=== PATIENT | male | born 1935 | race Caucasian/White ===

== ENCOUNTER → 2019-05-28 | Outpatient (CLI) | payer MEDICARE, SELFPAY | PROVIDERS: Family Provider Family Medicine; Visit Provider Internal Medicine Medical Oncology | DX: D46.1 Refractory anemia with ring sideroblasts (principal) | CPT/HCPCS: 36430; 85025; 86850; 86900; 86901; 86920; 96374; J1940; J7050; P9016 ×2 ==

== ENCOUNTER 2019-06-11 17:10 | Outpatient (CLI) | payer MEDICARE, SELFPAY ==
[2019-06-11 19:18] LABS: Albumin Level 3.8 g/dL (3.5-5.2)
[2019-06-11 19:29] LABS: Prealbumin 18.3 mg/dL (20-40)
== END 2019-06-11 17:11 | disposition home or self-care (01) ==
LOC: LAB 17:14
PROVIDERS: Family Provider Family Medicine; PCP Family Medicine; Visit Provider Surgery
DX: L97.911 Non-pressure chronic ulcer of unspecified part of right lower leg limited to breakdown of skin (principal)
CPT/HCPCS: 82040; 84134

== ENCOUNTER 2019-07-10 08:55 | Outpatient (CLI) | payer MEDICARE, SELFPAY ==
[2019-07-10] VITALS (11 sets, daily range): BP systolic 115–142; BP diastolic 48–75; PULSE 79–87; RESP 17–18; TEMP 36.4–36.8; O2SAT 92–100
[2019-07-10 09:24] LABS: Basophils % 1.4 %; Eosinophils % 1.4 %; Hematocrit 26.5 % (42.0-52.0); Hemoglobin 8.1 g/dL (11.7-16.6); Lymphocytes # 0.8 10^3/uL (0.8-4.8); Lymphocytes % 27.5 %; Mean Corpuscular HGB Conc 30.6 g/dL (30.0-36.0); Mean Corpuscular Hemoglobin 37.5 pg (28.0-34.0); Mean Corpuscular Volume 122.7 fL (80-94); Mean Platelet Volume 10.6 fL (7.4-10.4); Monocytes # 0.8 10^3/uL (0.2-0.9); Monocytes % 28.6 %; Neutrophils # 1.1 10^3/uL (1.8-7.7); Neutrophils % 40.4 %; Nucleated Red Blood Cells % 0 %; Platelet Count 324 10^3/cmm (130-400); Red Blood Count 2.16 10^6/uL (4.1-5.3); Red Cell Distribution Width 21.6 % (12.1-15.1); White Blood Count 2.8 10^3/uL (4.0-10.0)
[2019-07-10 09:42] LABS: Ferritin 591 ng/mL (30-400); Iron 145 ug/dL (59-158); Lactate Dehydrogenase 338 U/L (135-225); Percent Saturation 72.5 % (20-50); Total Iron Binding Capacity 200 mcg/dl; Unsaturated Iron Binding 55 ug/dL (112-347)
[2019-07-10] MEDS: diphenhydrAMINE 25 mg Capsule PO (13:00)
[2019-07-10] MEDS: acetaminophen 325 mg Tablet 650 MG PO (13:00)
[2019-07-10] MEDS: sodium chloride 0.9% 250 ML 999 ML IV (13:03)
[2019-07-10] MEDS: FUROsemide 10 mg/mL SDV 2mL 20 MG IV (14:52)
--- NOTE | 2019-07-10 20:23 | ONC FU_ITS ---
Dr. Grayson Patient Follow-Up Note Patient: Mike Sylvester Unit #: [id number]: 1935 Dicatated By: Craig Grayson M.D.Date of Visit:Jul 10, 2019 Onc Med Follow-up/Prog Note Chief Complaint: Myelodysplastic syndrome. 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 He has had long-standing anemia, refractory to erythropoietin stimulating agents. He was first seen here by Dr. Smith on 06/24/2011. 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 He had abundant proliferation of granulocytes and megakaryocytes with mild dyspoiesis. Flow cytometry, cytogenetics, FISH panel for MDS and reticulin stains were unrevealing. Flow cytometry for PNH was negative, and JAK2 and BCR/abl studies were unrevealing. He was diagnosed with systemic lupus erythematosus, and established care with rheumatology. His further workup revealed positive SLE serology, with positive antibodies for SSA, SSB, CONFERENCE SPECIALIST, and scleroderma. Complement levels C3, C4 were reduced. He responded to high dose prednisone, eventually tapered off in September of 2011 with hemoglobin recovered to 10-11 g/dL and transfusion independent. He was doing well until December of 2011, when he presented with recurrent anemia with hemoglobin 8.3 g/dL, and symptomatic CHF. At that time prednisone was restarted and tapered but also cyclosporin 100 mg by mouth 3 times a day was added. His anemia remained stable between 9-10 g/dL, and he was tolerating cyclosporin well. Since May 2012 he was under the care of Dr. Delgado in [place], as it was closer to home. He was receiving transfusion support about 3-4 times per year, Epogen injections monthly. He continued on cyclosporin at 100 mg three times a day. 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 Since July of 2013 had been receiving Epogen weekly, as he had more refractory anemia. In interim he required an AICD placement for his ischemic cardiomyopathy in September of 2013. In October 2013, he developed flash pulmonary edema associated with hemoglobin bruce around 7 g/dL. He was seen here again on 11/13/2013. While he remained on therapy with cyclosporin, his repeat bone marrow biopsy on 11/14/2013 was essentially unchanged. He had total of 80% cellularity with some limited dyspoiesis in megakaryocytes. He continued to have only 6% of red cells precursors. Cytogenetics failed to culture metaphase cells. FISH panel for MDS was negative. ESR 52, LDH 385 without hemolysis, and erythropoietin level 251. Thus, it had become clear that he was not responding to cyclosporine therapy. Cyclosporine and Epo injections were stopped to get a better sense of a new baseline. Prednisone 80 mg was restarted on 12/05/2013. Two weeks after steroid therapy his hemoglobin increased from 8.2 g/dL to 9.7 g/dL, indicating positive response, providing further evidence that an underlying immune process was affecting the RBC precursors. CT of the chest on 12/12/2013 showed no evidence of thymoma. He had moderate emphysema, indeterminate mediastinal lymph nodes up to 11 mm, stable left adrenal mass and a mild splenic enlargement. Given evidence of lupus like autoimmune condition, the alternative immunosuppressive therapy with rituximab began on 12/26/2013, as per discussion with Dr. Contreras, at [facility]. He received 4 weekly doses, completed on 01/16/14, and steroids were titrated down faster. Aranesp was restarted. His hemoglobin recovered and remained stable at above 10 g/dL, indicating positive response to rituximab treatment. He had a follow up with Dr Contreras at [facility], clonal evolution by next generation sequencing showed a new clonal mutation, confirming diagnosis of MDS. Second trial of rituximab began on 08/06/14- 08/27/14. Aranesp decreased down to every 2 weeks. The patient received cycle 3 of rituximab therapy from 01/28/15 to 02/18/15. He was doing well without complications. He continued on Aranesp therapy, and his hemoglobin remained stable. On 02/27/15 he was admitted with unstable angina. He required blood transfusion, but was refractory to it. Percutaneous coronary intervention was attempted, but reportedly was not successful. His hemoglobin declined to 8.4 g/dL in July 2015, recovered to 10 g/dL with the trial of steroids once again. His hemoglobin stabilized at 9.8 g/dL, and he completed steroid taper. His therapy was changed to Aranesp every 3 weeks because of the issues with transportation. He had a non-ST elevated myocardial infarction in November 2015, for which he underwent cardiac catheterization on 12/10/2015. He was found to have severe three-vessel disease with occluded grafts. There also was evidence of severe ischemic cardiomyopathy. Apparently it was felt that his disease was not amenable to any intervention. However, in the setting of symptomatic underlying coronary artery disease, he was deemed to be inappropriate for treatment with an erythropoietin stimulating agent, and the Aranesp was discontinued. He continued low-dose prednisone. He underwent repeat bone marrow aspiration/biopsy on 06/29/2016. Cellularity was increased, estimated at 75-80%. There was mild megakaryocyte dyspoiesis. There was no significant dyserythropoiesis noted. Blasts were reported at 0%. There was no storage iron identified. The FISH panel for MDS was unrevealing and the standard chromosome analysis was normal. The findings were nondiagnostic other than the apparent iron deficiency. He was given parenteral iron replacement with a single infusion of Injectafer on 08/17/2016. There was no observable response, as his follow-up CBC on 09/09/2016 showed his hemoglobin down to 7.7 g compared to 8.7 g on 08/04/2016. At that point he did receive a transfusion of 1 unit of packed red blood cells. As of December 2016 his hemoglobin level had decreased to under 9 g, and he also developed mild leukopenia. He underwent repeat bone marrow aspiration/biopsy on 03/05/2017. The marrow was hypercellular at 90-95%. There was evidence of megakaryocyte disc dyspoiesis. Erythroid precursors were noted to be decreased, and there was limited dyserythropoiesis. Iron stores were 1+. Ring sideroblasts were present, accounting for 20% of nucleated red cells. Blasts were estimated at 3%. The FISH panel for MDS was unrevealing, and the standard chromosome analysis was normal. Overall, the findings were felt to be consistent with myelodysplastic syndrome (MDS with ring sideroblasts). During subsequent follow-up on low-dose prednisone he continued to have moderately severe anemia, but above transfusion threshold. However, on 05/31/2017 his hemoglobin had dropped to 7.3 g. He was significantly more fatigued and short of breath. He was given a transfusion of 2 U of packed red blood cells on 06/01/2017. He then began a trial of therapy with Revlimid 10 mg daily. During subsequent follow-up he continued to have moderately severe anemia. He required transfusion again on 07/21/2017. He then developed severe neutropenia, ANC 600. As of 08/23/2017 the Revlimid was put on hold. His subsequent blood counts continued to show anemia and neutropenia. He required further transfusions on 08/31/2017 and on 09/27/2017. During this time, he underwent placement of a Watchman SILVIA occlusion device. He had no complications with the procedure. He initially continued anticoagulation with apixaban 2.5 mg twice a day together with clopidogrel 75 mg daily, but it was later changed to just aspirin. He also has continued immunosuppressive therapy with hydroxychloroquine 200 mg twice a day and prednisone 5 mg daily. He remained transfusion dependent. As of February 2018 his ferritin level had increased to 1153 ng/mL, and he then started treatment with deferasirox. It was stopped in September 2018 after his ferritin level had dropped to less than 500 ng/mL. His medical illnesses include hypertension, dyslipidemia, coronary artery disease, congestive heart failure, hypothyroidism, and systemic lupus. He has a history of prior stroke. He has undergone coronary artery bypass surgery. He has had a previous cholecystectomy, and he has undergone removal of colonic polyps. He underwent right inguinal hernia repair at [facility] in March 2016. He has history of smoking 1-1/2 packs of cigarettes daily for 60 years, but he quit smoking approximately 2006. INTERIM HISTORY: On 11/27/2018 he was admitted to the hospital after falling at home and sustaining a left hip fracture. He apparently developed an infection postoperatively, but eventually was transferred to rehabilitation on 12/20/2018 and he was able to return home on 01/05/2019. During that time he was taken off hydroxychloroquine. He continued on low-dose prednisone at 5 mg daily. He has remained transfusion dependent. He is seen for a scheduled visit. He says his energy is not very good. He continues to have shortness of breath with any activity, and he has very limited activity tolerance. He is still able to do some light work. He does get benefit with transfusions. ECOG score is 1. His appetite is good. He recently has gained weight. He has no fever or night sweats. He has been going to wound care for ulcerations on both legs. He does not have much cough. He has not been having chest pain. His bowel function lately has been better. He continues to have difficulty voiding. He has not been back to see Dr. Wheeler yet. He has no significant joint or bone pain. He does not complain of headache or dizziness. He has no focal neurologic symptoms. Medications: Carvedilol 1 (6.25 mg) Tablet Oral b.i.d., Colace 1 Tablet Oral b.i.d., Combigan 1 drop(s) (of 0.2-0.5 %) Solution Ophthalmic daily, Finasteride 1 (5 mg) Tablet Oral daily, Folic Acid 1 Tablet (of 0.8 mg) Oral daily, Furosemide 1 (40 mg) Tablet Oral daily PRN, Magnesium 1 (400 mg) Tablet Oral daily, Nitroglycerin 1 (0.4 mg) Tablet, sublingual Sublingual PRN, Ocuvite 1 Tablet Oral daily, Plavix 1 (75 mg) Tablet Oral daily, Potassium Chloride ER 1 (10 meq) Capsule, controlled release Oral daily, PredniSONE 1 Tablet (of 5 mg) Oral daily, Simvastatin 1 (20 mg) Tablet Oral daily, Vitamin B12 1 Tablet (of 5000 mcg) Oral daily Allergies: No Known Allergies. Review of Systems: Constitutional - His energy is not very good. He still does light work. Appetite is good. He recently has gained weight. No fever, chills, hot flashes, or night sweats. ECOG score is 1, ENMT - No sinus congestion/drainage. No mouth sores. No sore throat or difficulty swallowing, Hematologic/Lymphatic - He bruises easily, Respiratory - He has shortness of breath with any activity. He does not have much cough. No pleuritic pain or hemoptysis, Cardiovascular - No angina pain. No palpitations, Gastrointestinal - No nausea or vomiting. No heartburn or acid reflux. His bowel function is better. No blood in the stool or black stools, Genitourinary (M) - He has difficulty voiding and his urine flow is getting worse. No dysuria or hematuria. No urgency or incontinence, Musculoskeletal - No significant joint or bone pain, Integumentary - He has been going to wound care for ulcerations on both legs, Neurologic - No headache or dizziness. No numbness/paresthesias or other focal neurologic symptoms, Psychiatric - No anxiety or depression. He does not sleep for more than 2-3 hours without having to get up. Vital Signs: Performed on Jul 10, 2019 09:40 Height - 71.00 in Weight - 193.0 lbs (HIGH) BSA - 2.08 sq.m BMI - 26.92 Temperature - 97.4 F (LOW) Pulse - 80 /min Respiration - 24 /min BP - 121/58 mm(hg) O2 Sat - 89 % (LOW) Pain - 0 Physical Examination: Constitutional - He appears somewhat weak generally. He appears short of breath with effort, Eyes - Sclerae nonicteric. Conjunctivae clear, ENMT - No lesions noted in the oral cavity, Hematologic/Lymphatic - No cervical, clavicular, or axillary adenopathy, Respiratory - Lungs sound clear at this time, Cardiovascular - Heart rhythm is regular. There is a II/ systolic murmur. There is no gallop or rub noted, Abdomen - Mildly distended but soft. Liver and spleen are not enlarged. There is no abdominal mass or ascites noted and there is no inguinal adenopathy, Extremities - Mild to moderately severe lower extemity edema. Both legs are wrapped. He has extensive purpura, Neurologic - No focal neurologic deficits noted. Lab/Imaging: Test performed on Jul 10, 2019 09:08 Ferritin 591 ng/mL Iron 145 ug/dL LDH (Total) 338 U/L UIBC 55 ug/dL WBC 2.8 10 3/uL RBC 2.16 10 6/uL HGB 8.1 g/dL HCT 26.5 % MCV 122.7 fL MCH 37.5 pg MCHC 30.6 g/dL RDW 21.6 % Platelet Count 324 10 3/cmm MPV 10.6 fL Neutrophils 1.1 10 3/uL Lymphocytes 0.8 10 3/uL Monocytes 0.8 10 3/uL Eosinophils 0.0 10 3/uL Basophils 0.0 10 3/uL Neutrophil % 40.4 % Lymphocyte % 27.5 % Monocyte % 28.6 % Eosinophil % 1.4 % Basophils % 1.4 % Test performed on Jul 01, 2019 17:18 TSH 14.63 uU/mL Vitamin B12 1034 pg/mL Cholesterol, Total 95 mg/dL Glucose 107 mg/dL BUN 28 mg/dL HDL Cholesterol 44 mg/dL Creatinine 1.3 mg/dL LDL Cholesterol 28 mg/dL VLDL Cholesterol 23.2 mg/dL BUN/Creatinine Ratio 22 Absolute Value Triglycerides 116 mg/dL Sodium 142 mmol/L Potassium 4.1 mmol/L Chloride 99 mmol/L CO2 38 mmol/L Calcium 8.7 mg/dL Impression: 1. 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 2. He has had evidence of underlying autoimmune disease, including systemic lupus erythematosus. 3. His anemia has shown response to immunosuppressive therapy, which has included steroid therapy and rituximab. He appeared, though, to have failed treatment with cyclosporine. 4. He also had benefit with an erythropoietin stimulating agent. 5. He was hospitalized with non-ST elevation myocardial infarction in November 2015. At that point it was felt that he was not eligible for further treatment with an erythropoietin stimulating agent. His other medical illnesses include: 6. Hypertension. 7. Dyslipidemia. 8. Coronary artery disease. 9. He has history of atrial fibrillation and congestive heart failure. 10. Hypothyroidism. 11. History of prior stroke. He had initially been stable clinically following the myocardial infarction in November 2015, but with some decline in his hemoglobin/hematocrit levels. His repeat bone marrow aspiration/biopsy on 06/29/2016 showed absent storage iron consistent with iron deficiency. The marrow was hypercellular, but there were no other diagnostic findings. I was uncertain of the clinical significance of the absent storage iron, as he had normal transferrin saturation and elevated ferritin. He was given a single infusion of Injectafer on 08/17/2016. There was no observable response. He required transfusion again in August 2016. As of December 2016 his hemoglobin had declined under 9 g, and he also developed mild leukopenia. His repeat bone marrow aspiration/biopsy on 03/05/2017 was consistent with myelodysplastic syndrome (MDS with ring sideroblasts). His IPSS-R score calculated to 3.0, low risk. During subsequent followup his hemoglobin level remained stable in the range of 8-9 g, above transfusion threshold. As of 05/31/2017 his hemoglobin had dropped to 7.3 g. He was transfused 2 U of packed red blood cells. He then started a trial of therapy with Revlimid 10 mg daily. He required another transfusion of PRBC within 1 month after starting the Revlimid. During subsequent follow-up, he continued to have moderately severe anemia. He then developed severe neutropenia, and as of his follow-up visit on 08/23/2017 the Revlimid was put on hold. During subsequent follow-up he remained transfusion dependent, but he did have recovery of his neutrophil count. As of February 2018 he began chelation therapy with deferasirox, as his ferritin had become significantly elevated. It was stopped in September 2018 with the ferritin level had dropped below 500 ng/mL. On 11/27/2018 he was admitted to the hospital after falling at home and sustaining left hip fracture. He had a gradual recovery following that surgery, though he has since then had worsened bladder function with difficulty voiding. He has chronic edema and he has been undergoing treatment at wound care clinic for venous stasis ulcers on both legs. He has very limited activity tolerance, and he has remained transfusion dependent. Plan: He will be transfused PRBC today. He will continue prednisone 5 mg daily. He prefers to have his blood count rechecked on an as-needed basis, and he will be given further transfusion as needed. I will see him again in 3 months. In the meantime, I am going to look into the possibility of a trial of therapy with luspatercept, which recently was reported to have benefit in the treatment of myelodysplastic syndrome with ring sideroblasts with associated transfusion dependence. Signed By: Craig Grayson M.D. <<Signature on File>>
== END 2019-07-10 08:56 | disposition home or self-care (01) ==
LOC: ONCMED 09:02
PROVIDERS: Family Provider Family Medicine; PCP Family Medicine; Visit Provider Internal Medicine Medical Oncology
DX: D46.1 Refractory anemia with ring sideroblasts (principal); J43.9 Emphysema, unspecified; I25.5 Ischemic cardiomyopathy; I25.10 Atherosclerotic heart disease of native coronary artery without angina pectoris; E78.5 Hyperlipidemia, unspecified; I11.0 Hypertensive heart disease with heart failure; I50.9 Heart failure, unspecified; E03.9 Hypothyroidism, unspecified; M32.9 Systemic lupus erythematosus, unspecified; I25.2 Old myocardial infarction; Z91.81 History of falling; Z79.899 Other long term (current) drug therapy; Z79.02 Long term (current) use of antithrombotics/antiplatelets; Z79.52 Long term (current) use of systemic steroids; Z92.25 Personal history of immunosuppression therapy; Z95.810 Presence of automatic (implantable) cardiac defibrillator; Z86.73 Personal history of transient ischemic attack (TIA), and cerebral infarction without residual deficits; Z95.1 Presence of aortocoronary bypass graft
CPT/HCPCS: 36430; 82728; 83540; 83550; 83615; 85025; 86850; 86900; 99214; J1940; J7050; P9040

== ENCOUNTER → 2019-10-22 10:27 | Outpatient (BNVA) | payer MEDICARE, SELFPAY | PROVIDERS: Family Provider Family Medicine; PCP Family Medicine; Visit Provider Internal Medicine Medical Oncology | DX: D64.9 Anemia, unspecified (principal) | CPT/HCPCS: 85025 ==

== ENCOUNTER 2019-10-23 07:53 | Outpatient (CLI) | payer MEDICARE, SELFPAY ==
[2019-10-23] MEDS: acetaminophen 325 mg Tablet 650 MG PO (09:00)
[2019-10-23] MEDS: sodium chloride 0.9% 250 ML 999 ML IV (09:00)
[2019-10-23] MEDS: FUROsemide 10 mg/mL SDV 2mL 20 MG IV (17:09)
[2019-10-23] MEDS: diphenhydrAMINE 25 mg Capsule PO (17:09)
== END 2019-10-23 07:54 | disposition home or self-care (01) ==
LOC: ONCMED 07:58
PROVIDERS: PCP Family Medicine; Visit Provider Internal Medicine Medical Oncology
DX: D50.8 Other iron deficiency anemias (principal); D46.1 Refractory anemia with ring sideroblasts
CPT/HCPCS: 86850; 86900; 86920; J1940; J7050; P9040

== ENCOUNTER 2019-11-18 08:48 | Outpatient (CLI) | payer MEDICARE, SELFPAY ==
[2019-11-18] VITALS (9 sets, daily range): BP systolic 103–128; BP diastolic 47–63; PULSE 75–82; RESP 17–18; TEMP 36.7–36.9; O2SAT 90–98
[2019-11-18 09:28] LABS: Hematocrit 26.9 % (42.0-52.0); Hemoglobin 8.1 g/dL (11.7-16.6); Lymphocytes # 0.8 10^3/uL (0.8-4.8); Lymphocytes % 19.1 %; Mean Corpuscular HGB Conc 30.1 g/dL (30.0-36.0); Mean Corpuscular Volume 122.8 fL (80-94); Mean Platelet Volume 10.4 fL (7.4-10.4); Monocytes # 1.1 10^3/uL (0.2-0.9); Monocytes % 26.8 %; Neutrophils % 50.8 %; Nucleated Red Blood Cells % 0 %; Platelet Count 357 10^3/cmm (130-400); Red Blood Count 2.19 10^6/uL (4.1-5.3); Red Cell Distribution Width 23.1 % (12.1-15.1); White Blood Count 3.9 10^3/uL (4.0-10.0)
[2019-11-18] MEDS: acetaminophen 325 mg Tablet 650 MG PO (11:40)
[2019-11-18] MEDS: sodium chloride 0.9% 250 ML 999 ML IV (12:15)
[2019-11-18] MEDS: diphenhydrAMINE 25 mg Capsule PO (12:15)
--- NOTE | 2019-11-19 07:56 | ONC FU_ITS ---
Dr. Grayson Patient Follow-Up Note Patient: Mike Sylvester Unit #: [id number]: [id number] Dicatated By: Craig Grayson M.D.Date of Visit:Nov 18, 2019 Onc Med Follow-up/Prog Note Chief Complaint: Myelodysplastic syndrome. 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 He has had long-standing anemia, refractory to erythropoietin stimulating agents. He was first seen here by Dr. Smith on 06/24/2011. 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 He had abundant proliferation of granulocytes and megakaryocytes with mild dyspoiesis. Flow cytometry, cytogenetics, FISH panel for MDS and reticulin stains were unrevealing. Flow cytometry for PNH was negative, and JAK2 and BCR/abl studies were unrevealing. He was diagnosed with systemic lupus erythematosus, and established care with rheumatology. His further workup revealed positive SLE serology, with positive antibodies for SSA, SSB, LION HUNTER, and scleroderma. Complement levels C3, C4 were reduced. He responded to high dose prednisone, eventually tapered off in September of 2011 with hemoglobin recovered to 10-11 g/dL and transfusion independent. He was doing well until December of 2011, when he presented with recurrent anemia with hemoglobin 8.3 g/dL, and symptomatic CHF. At that time prednisone was restarted and tapered but also cyclosporin 100 mg by mouth 3 times a day was added. His anemia remained stable between 9-10 g/dL, and he was tolerating cyclosporin well. Since May 2012 he was under the care of Dr. Delgado in [place], as it was closer to home. He was receiving transfusion support about 3-4 times per year, Epogen injections monthly. He continued on cyclosporin at 100 mg three times a day. 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 Since July of 2013 had been receiving Epogen weekly, as he had more refractory anemia. In interim he required an AICD placement for his ischemic cardiomyopathy in September of 2013. In October 2013, he developed flash pulmonary edema associated with hemoglobin bruce around 7 g/dL. He was seen here again on 11/13/2013. While he remained on therapy with cyclosporin, his repeat bone marrow biopsy on 11/14/2013 was essentially unchanged. He had total of 80% cellularity with some limited dyspoiesis in megakaryocytes. He continued to have only 6% of red cells precursors. Cytogenetics failed to culture metaphase cells. FISH panel for MDS was negative. ESR 52, LDH 385 without hemolysis, and erythropoietin level 251. Thus, it had become clear that he was not responding to cyclosporine therapy. Cyclosporine and Epo injections were stopped to get a better sense of a new baseline. Prednisone 80 mg was restarted on 12/05/2013. Two weeks after steroid therapy his hemoglobin increased from 8.2 g/dL to 9.7 g/dL, indicating positive response, providing further evidence that an underlying immune process was affecting the RBC precursors. CT of the chest on 12/12/2013 showed no evidence of thymoma. He had moderate emphysema, indeterminate mediastinal lymph nodes up to 11 mm, stable left adrenal mass and a mild splenic enlargement. Given evidence of lupus like autoimmune condition, the alternative immunosuppressive therapy with rituximab began on 12/26/2013, as per discussion with Dr. Contreras, at [facility]. He received 4 weekly doses, completed on 01/16/14, and steroids were titrated down faster. Aranesp was restarted. His hemoglobin recovered and remained stable at above 10 g/dL, indicating positive response to rituximab treatment. He had a follow up with Dr Contreras at [facility], clonal evolution by next generation sequencing showed a new clonal mutation, confirming diagnosis of MDS. Second trial of rituximab began on 08/06/14- 08/27/14. Aranesp decreased down to every 2 weeks. The patient received cycle 3 of rituximab therapy from 01/28/15 to 02/18/15. He was doing well without complications. He continued on Aranesp therapy, and his hemoglobin remained stable. On 02/27/15 he was admitted with unstable angina. He required blood transfusion, but was refractory to it. Percutaneous coronary intervention was attempted, but reportedly was not successful. His hemoglobin declined to 8.4 g/dL in July 2015, recovered to 10 g/dL with the trial of steroids once again. His hemoglobin stabilized at 9.8 g/dL, and he completed steroid taper. His therapy was changed to Aranesp every 3 weeks because of the issues with transportation. He had a non-ST elevated myocardial infarction in November 2015, for which he underwent cardiac catheterization on 12/10/2015. He was found to have severe three-vessel disease with occluded grafts. There also was evidence of severe ischemic cardiomyopathy. Apparently it was felt that his disease was not amenable to any intervention. However, in the setting of symptomatic underlying coronary artery disease, he was deemed to be inappropriate for treatment with an erythropoietin stimulating agent, and the Aranesp was discontinued. He continued low-dose prednisone. He underwent repeat bone marrow aspiration/biopsy on 06/29/2016. Cellularity was increased, estimated at 75-80%. There was mild megakaryocyte dyspoiesis. There was no significant dyserythropoiesis noted. Blasts were reported at 0%. There was no storage iron identified. The FISH panel for MDS was unrevealing and the standard chromosome analysis was normal. The findings were nondiagnostic other than the apparent iron deficiency. He was given parenteral iron replacement with a single infusion of Injectafer on 08/17/2016. There was no observable response, as his follow-up CBC on 09/09/2016 showed his hemoglobin down to 7.7 g compared to 8.7 g on 08/04/2016. At that point he did receive a transfusion of 1 unit of packed red blood cells. As of December 2016 his hemoglobin level had decreased to under 9 g, and he also developed mild leukopenia. He underwent repeat bone marrow aspiration/biopsy on 03/05/2017. The marrow was hypercellular at 90-95%. There was evidence of megakaryocyte disc dyspoiesis. Erythroid precursors were noted to be decreased, and there was limited dyserythropoiesis. Iron stores were 1+. Ring sideroblasts were present, accounting for 20% of nucleated red cells. Blasts were estimated at 3%. The FISH panel for MDS was unrevealing, and the standard chromosome analysis was normal. Overall, the findings were felt to be consistent with myelodysplastic syndrome (MDS with ring sideroblasts). During subsequent follow-up on low-dose prednisone he continued to have moderately severe anemia, but above transfusion threshold. However, on 05/31/2017 his hemoglobin had dropped to 7.3 g. He was significantly more fatigued and short of breath. He was given a transfusion of 2 U of packed red blood cells on 06/01/2017. He then began a trial of therapy with Revlimid 10 mg daily. During subsequent follow-up he continued to have moderately severe anemia. He required transfusion again on 07/21/2017. He then developed severe neutropenia, ANC 600. As of 08/23/2017 the Revlimid was put on hold. His subsequent blood counts continued to show anemia and neutropenia. He required further transfusions on 08/31/2017 and on 09/27/2017. During this time, he underwent placement of a Watchman SILVIA occlusion device. He had no complications with the procedure. He initially continued anticoagulation with apixaban 2.5 mg twice a day together with clopidogrel 75 mg daily, but it was later changed to just aspirin. He also has continued immunosuppressive therapy with hydroxychloroquine 200 mg twice a day and prednisone 5 mg daily. He remained transfusion dependent. As of February 2018 his ferritin level had increased to 1153 ng/mL, and he then started treatment with deferasirox. It was stopped in September 2018 after his ferritin level had dropped to less than 500 ng/mL. On 11/27/2018 he was admitted to the hospital after falling at home and sustaining a left hip fracture. He apparently developed an infection postoperatively, but eventually was transferred to rehabilitation on 12/20/2018 and he was able to return home on 01/05/2019. During that time he was taken off hydroxychloroquine. He continued on low-dose prednisone at 5 mg daily. His other medical illnesses include hypertension, dyslipidemia, coronary artery disease, congestive heart failure, hypothyroidism, and systemic lupus. He has a history of prior stroke. He has undergone coronary artery bypass surgery. He has had a previous cholecystectomy, and he has undergone removal of colonic polyps. He underwent right inguinal hernia repair at [facility] in March 2016. He has history of smoking 1-1/2 packs of cigarettes daily for 60 years, but he quit smoking approximately 2006. INTERIM HISTORY: As of August 2019 he had been scheduled to begin a trial of therapy with luspatercept, but he opted to put off treatment due to the coronavirus pandemic. Last month he underwent vascular procedures on both legs due to his chronic venous insufficiency. His repeat CBC on 10/22/2019 showed further decline in his hemoglobin to 7.3 g, but at that time he declined transfusion. He is seen for a follow-up visit. He says his blood pressure has been low the last couple of days, and he has been feeling generally weak and wobbly. His energy level fluctuates. He is able to do light work at home. His ECOG score is 1. He has good appetite. He does not have fever or night sweats. He says his breathing is terrible. He gets short of breath with any activity. He is on oxygen most of the time. He does not complain of cough. He has not been having chest pain. He has no GI complaints other than his bowels have been a little loose with his current diet. He has been having difficulty voiding, and he is scheduled to see Dr. Wheeler for a follow-up visit today. He has no significant joint or bone pain. He has no focal neurologic symptoms. Medications: Carvedilol 1 (6.25 mg) Tablet Oral b.i.d., Colace 1 Tablet Oral b.i.d., Combigan 1 drop(s) (of 0.2-0.5 %) Solution Ophthalmic daily, Finasteride 1 (5 mg) Tablet Oral daily, Folic Acid 1 Tablet (of 0.8 mg) Oral daily, Furosemide 1 (40 mg) Tablet Oral daily, Magnesium 1 (400 mg) Tablet Oral daily, Nitroglycerin 1 (0.4 mg) Tablet, sublingual Sublingual PRN, Ocuvite 1 Tablet Oral daily, Plavix 1 (75 mg) Tablet Oral daily, Potassium Chloride ER 1 (10 meq) Capsule, controlled release Oral daily, PredniSONE 1 Tablet (of 5 mg) Oral daily, Simvastatin 1 (20 mg) Tablet Oral daily, Vitamin B12 1 Tablet (of 5000 mcg) Oral daily Allergies: No Known Allergies. Review of Systems: Constitutional - His energy comes and goes, but it is lower than he would like it to be. He is doing light housework. His appetite is good and weight is up about 3 pounds. No fever, night sweats, or hot flashes. ECOG score is 1, ENMT - No sinus congestion/drainage. No mouth sores. No sore throat or difficulty swallowing, Hematologic/Lymphatic - He has easy bruising, Respiratory - He continues to have shortness of breath. He wears continous oxygen most of the day. No cough. No pleuritic pain or hemoptysis, Cardiovascular - No angina pain. No palpitations, Gastrointestinal - No nausea or vomiting. No heartburn or acid reflux. He is having losse stools. No constipation. No blood in the stool or black stools, Genitourinary (M) - No dysuria or hematuria. No urinary frequency. No urgency or incontinence. He has a significant difficulty with hesitation, Musculoskeletal - No joint or bone pain, Integumentary - He has had treatment for venous stasis ulcerations. His swelling has improved, Neurologic - No headache. He feels wobbly when his blood count is down. No numbness or tingling. No other focal neurologic symptoms, Psychiatric - No anxiety or depression. He does not sleep well. Vital Signs: Weight is 172 pounds. Blood pressure 89/41, pulse 81, respirations 24, 10.2 degrees, oxygen saturation 90% on room air. Physical Examination: Constitutional - He appears somewhat weak generally, Eyes - Sclerae nonicteric. Conjunctivae clear, ENMT - No lesions noted in the oral cavity, Hematologic/Lymphatic - No cervical, clavicular, or axillary adenopathy, Respiratory - Lungs sound clear with some decrease in air movement bilaterally, Cardiovascular - Heart rhythm is regular. There is a II/ systolic murmur. There is no gallop or rub noted, Abdomen - Soft. Liver and spleen are not enlarged. There is no abdominal mass or ascites noted and there is no inguinal adenopathy, Extremities - Mild lower extemity edema with some associated erythema, Integumentary - No skin ulcerations noted at this time, Neurologic - No focal neurologic deficits noted. Lab/Imaging: Test performed on Nov 18, 2019 09:05 WBC 3.9 10 3/uL RBC 2.19 10 6/uL HGB 8.1 g/dL HCT 26.9 % MCV 122.8 fL MCH 37.0 pg MCHC 30.1 g/dL RDW 23.1 % Platelet Count 357 10 3/cmm MPV 10.4 fL Neutrophils 2.0 10 3/uL Lymphocytes 0.8 10 3/uL Monocytes 1.1 10 3/uL Eosinophils 0.0 10 3/uL Basophils 0.0 10 3/uL Neutrophil % 50.8 % Lymphocyte % 19.1 % Monocyte % 26.8 % Eosinophil % 1.0 % Basophils % 1.0 % NRBC % 0 % Impression: 1. 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 2. He has had evidence of underlying autoimmune disease, including systemic lupus erythematosus. 3. His anemia has shown response to immunosuppressive therapy, which has included steroid therapy and rituximab. He appeared, though, to have failed treatment with cyclosporine. 4. He also had benefit with an erythropoietin stimulating agent. 5. He was hospitalized with non-ST elevation myocardial infarction in November 2015. At that point it was felt that he was not eligible for further treatment with an erythropoietin stimulating agent. His other medical illnesses include: 6. Hypertension. 7. Dyslipidemia. 8. Coronary artery disease. 9. He has history of atrial fibrillation and congestive heart failure. 10. Hypothyroidism. 11. History of prior stroke. He had initially been stable clinically following the myocardial infarction in November 2015, but with some decline in his hemoglobin/hematocrit levels. His repeat bone marrow aspiration/biopsy on 06/29/2016 showed absent storage iron consistent with iron deficiency. The marrow was hypercellular, but there were no other diagnostic findings. I was uncertain of the clinical significance of the absent storage iron, as he had normal transferrin saturation and elevated ferritin. He was given a single infusion of Injectafer on 08/17/2016. There was no observable response. He required transfusion again in August 2016. As of December 2016 his hemoglobin had declined under 9 g, and he also developed mild leukopenia. His repeat bone marrow aspiration/biopsy on 03/05/2017 was consistent with myelodysplastic syndrome (MDS with ring sideroblasts). His IPSS-R score calculated to 3.0, low risk. During subsequent followup his hemoglobin level remained stable in the range of 8-9 g, above transfusion threshold. As of 05/31/2017 his hemoglobin had dropped to 7.3 g. He was transfused 2 U of packed red blood cells. He then started a trial of therapy with Revlimid 10 mg daily. He required another transfusion of PRBC within 1 month after starting the Revlimid. During subsequent follow-up, he continued to have moderately severe anemia. He then developed severe neutropenia, and as of his follow-up visit on 08/23/2017 the Revlimid was put on hold. During subsequent follow-up he remained transfusion dependent, but he did have recovery of his neutrophil count. As of February 2018 he began chelation therapy with deferasirox, as his ferritin had become significantly elevated. It was stopped in September 2018 with the ferritin level had dropped below 500 ng/mL. On 11/27/2018 he was admitted to the hospital after falling at home and sustaining left hip fracture. He had a gradual recovery following that surgery, though he has since then had worsened bladder function with difficulty voiding. He has chronic edema and he required treatment at wound care clinic for venous stasis ulcers on both legs. In September 2019 he underwent a vascular procedure to both legs for the venous insufficiency. He has had significant improvement in his edema. He continues to have moderately severe anemia, and recently his blood pressure has been on the low side. Plan: He is now going to begin a trial of therapy with luspatercept 1 mg/kg by subcutaneous injection every 3 weeks, as it is now FDA approved for treatment of myelodysplastic syndrome with ring sideroblasts. As he does appear to be symptomatic with his anemia, he will be transfused 2 units PRBC today. With the improvement in his edema, he is going to back off on his furosemide when his blood pressure is low. I will see him again in 3 weeks, but his blood count can be rechecked sooner as needed. Signed By: Craig Grayson M.D. <<Signature on File>>
== END 2019-11-18 08:49 | disposition home or self-care (01) ==
LOC: ONCMED 08:56
PROVIDERS: PCP Family Medicine; Visit Provider Internal Medicine Medical Oncology
DX: D46.1 Refractory anemia with ring sideroblasts (principal); M32.9 Systemic lupus erythematosus, unspecified; I25.2 Old myocardial infarction; I11.0 Hypertensive heart disease with heart failure; I50.9 Heart failure, unspecified; E78.5 Hyperlipidemia, unspecified; E03.9 Hypothyroidism, unspecified; I48.91 Unspecified atrial fibrillation; Z86.73 Personal history of transient ischemic attack (TIA), and cerebral infarction without residual deficits; Z79.899 Other long term (current) drug therapy
CPT/HCPCS: 36430; 85025; 86850; 86900; 86920; 96372; 99214; C9399; J7050; P9016

== ENCOUNTER 2019-12-09 09:06 | Outpatient (CLI) | payer MEDICARE, SELFPAY ==
[2019-12-09 09:52] LABS: Basophils # 0.1 10^3/uL (0.0-0.1); Basophils % 1.2 %; Hematocrit 33.2 % (42.0-52.0); Hemoglobin 10.3 g/dL (11.7-16.6); Lymphocytes # 0.9 10^3/uL (0.8-4.8); Lymphocytes % 22.8 %; Mean Corpuscular Hemoglobin 36.8 pg (28.0-34.0); Mean Corpuscular Volume 118.6 fL (80-94); Mean Platelet Volume 10.3 fL (7.4-10.4); Monocytes # 1.2 10^3/uL (0.2-0.9); Monocytes % 28.8 %; Neutrophils % 43.5 %; Nucleated Red Blood Cells % 0 %; Platelet Count 528 10^3/cmm (130-400); White Blood Count 4.1 10^3/uL (4.0-10.0)
[2019-12-09 10:04] LABS: Alanine Aminotransferase 25 U/L (0-41); Albumin Level 4.1 g/dL (3.5-5.2); Alkaline Phosphatase 95 IU/L (40-130); Anion Gap 11.5 (5-19); Aspartate Amino Transferase 25 U/L (0-40); Blood Urea Nitrogen 20 mg/dL (8-23); Calcium 9.5 mg/dL (8.5-10.5); Carbon Dioxide 32 mmol/L (22-29); Chloride 103 mmol/L (98-107); Globulin 2.6 g/dL (1.3-4.6); Glucose 117 mg/dL (65-115); Lactate Dehydrogenase 425 U/L (135-225); Osmolality Calculated 292 mOsm/kg (285-295); Potassium 4.5 mmol/L (3.5-5.1); Sodium 142 mmol/L (136-145); Total Bilirubin 0.6 mg/dL (0.15-1.2); Total Protein 6.7 g/dL (6.6-8.7)
[2019-12-09 11:23] LABS: Add RBC Morph Yes; Anisocytosis 1+; Giant Platelets Trace; Poikilocytosis 1+; Polychromasia 1+; Slide Review Slide Review Perform
[2019-12-09 11:24] LABS: RBC Morph Comp Yes; Stomatocytes 1+
--- NOTE | 2019-12-14 14:54 | ONC FU_ITS ---
[facility] Patient Note Patient: Mike Sylvester Unit #: [id number]: [id number] Dictated By: Lexx MacDate of Visit: Dec 09, 2019 Onc MED Follow-Up/Prog Note Chief Complaint: Myelodysplastic syndrome. 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 He has had long-standing anemia, refractory to erythropoietin stimulating agents. He was first seen here by Dr. Smith on 06/24/2011. 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 He had abundant proliferation of granulocytes and megakaryocytes with mild dyspoiesis. Flow cytometry, cytogenetics, FISH panel for MDS and reticulin stains were unrevealing. Flow cytometry for PNH was negative, and JAK2 and BCR/abl studies were unrevealing. He was diagnosed with systemic lupus erythematosus, and established care with rheumatology. His further workup revealed positive SLE serology, with positive antibodies for SSA, SSB, BRAKE MECHANIC, and scleroderma. Complement levels C3, C4 were reduced. He responded to high dose prednisone, eventually tapered off in September of 2011 with hemoglobin recovered to 10-11 g/dL and transfusion independent. He was doing well until December of 2011, when he presented with recurrent anemia with hemoglobin 8.3 g/dL, and symptomatic CHF. At that time prednisone was restarted and tapered but also cyclosporin 100 mg by mouth 3 times a day was added. His anemia remained stable between 9-10 g/dL, and he was tolerating cyclosporin well. Since May 2012 he was under the care of Dr. Delgado in [place], as it was closer to home. He was receiving transfusion support about 3-4 times per year, Epogen injections monthly. He continued on cyclosporin at 100 mg three times a day. He ran out of methimazole and did not follow up with his instructional support technician. Since July of 2013 had been receiving Epogen weekly, as he had more refractory anemia. In interim he required an AICD placement for his ischemic cardiomyopathy in September of 2013. In October 2013, he developed flash pulmonary edema associated with hemoglobin bruce around 7 g/dL. He was seen here again on 11/13/2013. While he remained on therapy with cyclosporin, his repeat bone marrow biopsy on 11/14/2013 was essentially unchanged. He had total of 80% cellularity with some limited dyspoiesis in megakaryocytes. He continued to have only 6% of red cells precursors. Cytogenetics failed to culture metaphase cells. FISH panel for MDS was negative. ESR 52, LDH 385 without hemolysis, and erythropoietin level 251. Thus, it had become clear that he was not responding to cyclosporine therapy. Cyclosporine and Epo injections were stopped to get a better sense of a new baseline. Prednisone 80 mg was restarted on 12/05/2013. Two weeks after steroid therapy his hemoglobin increased from 8.2 g/dL to 9.7 g/dL, indicating positive response, providing further evidence that an underlying immune process was affecting the RBC precursors. CT of the chest on 12/12/2013 showed no evidence of thymoma. He had moderate emphysema, indeterminate mediastinal lymph nodes up to 11 mm, stable left adrenal mass and a mild splenic enlargement. Given evidence of lupus like autoimmune condition, the alternative immunosuppressive therapy with rituximab began on 12/26/2013, as per discussion with Dr. Contreras, at [facility]. He received 4 weekly doses, completed on 01/16/14, and steroids were titrated down faster. Aranesp was restarted. His hemoglobin recovered and remained stable at above 10 g/dL, indicating positive response to rituximab treatment. He had a follow up with Dr Contreras at [facility], clonal evolution by next generation sequencing showed a new clonal mutation, confirming diagnosis of MDS. Second trial of rituximab began on 08/06/14- 08/27/14. Aranesp decreased down to every 2 weeks. The patient received cycle 3 of rituximab therapy from 01/28/15 to 02/18/15. He was doing well without complications. He continued on Aranesp therapy, and his hemoglobin remained stable. On 02/27/15 he was admitted with unstable angina. He required blood transfusion, but was refractory to it. Percutaneous coronary intervention was attempted, but reportedly was not successful. His hemoglobin declined to 8.4 g/dL in July 2015, recovered to 10 g/dL with the trial of steroids once again. His hemoglobin stabilized at 9.8 g/dL, and he completed steroid taper. His therapy was changed to Aranesp every 3 weeks because of the issues with transportation. He had a non-ST elevated myocardial infarction in November 2015, for which he underwent cardiac catheterization on 12/10/2015. He was found to have severe three-vessel disease with occluded grafts. There also was evidence of severe ischemic cardiomyopathy. Apparently it was felt that his disease was not amenable to any intervention. However, in the setting of symptomatic underlying coronary artery disease, he was deemed to be inappropriate for treatment with an erythropoietin stimulating agent, and the Aranesp was discontinued. He continued low-dose prednisone. He underwent repeat bone marrow aspiration/biopsy on 06/29/2016. Cellularity was increased, estimated at 75-80%. There was mild megakaryocyte dyspoiesis. There was no significant dyserythropoiesis noted. Blasts were reported at 0%. There was no storage iron identified. The FISH panel for MDS was unrevealing and the standard chromosome analysis was normal. The findings were nondiagnostic other than the apparent iron deficiency. He was given parenteral iron replacement with a single infusion of Injectafer on 08/17/2016. There was no observable response, as his follow-up CBC on 09/09/2016 showed his hemoglobin down to 7.7 g compared to 8.7 g on 08/04/2016. At that point he did receive a transfusion of 1 unit of packed red blood cells. As of December 2016 his hemoglobin level had decreased to under 9 g, and he also developed mild leukopenia. He underwent repeat bone marrow aspiration/biopsy on 03/05/2017. The marrow was hypercellular at 90-95%. There was evidence of megakaryocyte disc dyspoiesis. Erythroid precursors were noted to be decreased, and there was limited dyserythropoiesis. Iron stores were 1+. Ring sideroblasts were present, accounting for 20% of nucleated red cells. Blasts were estimated at 3%. The FISH panel for MDS was unrevealing, and the standard chromosome analysis was normal. Overall, the findings were felt to be consistent with myelodysplastic syndrome (MDS with ring sideroblasts). During subsequent follow-up on low-dose prednisone he continued to have moderately severe anemia, but above transfusion threshold. However, on 05/31/2017 his hemoglobin had dropped to 7.3 g. He was significantly more fatigued and short of breath. He was given a transfusion of 2 U of packed red blood cells on 06/01/2017. He then began a trial of therapy with Revlimid 10 mg daily. During subsequent follow-up he continued to have moderately severe anemia. He required transfusion again on 07/21/2017. He then developed severe neutropenia, ANC 600. As of 08/23/2017 the Revlimid was put on hold. His subsequent blood counts continued to show anemia and neutropenia. He required further transfusions on 08/31/2017 and on 09/27/2017. During this time, he underwent placement of a Watchman SILVIA occlusion device. He had no complications with the procedure. He initially continued anticoagulation with apixaban 2.5 mg twice a day together with clopidogrel 75 mg daily, but it was later changed to just aspirin. He also has continued immunosuppressive therapy with hydroxychloroquine 200 mg twice a day and prednisone 5 mg daily. He remained transfusion dependent. As of February 2018 his ferritin level had increased to 1153 ng/mL, and he then started treatment with deferasirox. It was stopped in September 2018 after his ferritin level had dropped to less than 500 ng/mL. On 11/27/2018 he was admitted to the hospital after falling at home and sustaining a left hip fracture. He apparently developed an infection postoperatively, but eventually was transferred to rehabilitation on 12/20/2018 and he was able to return home on 01/05/2019. During that time he was taken off hydroxychloroquine. He continued on low-dose prednisone at 5 mg daily. His other medical illnesses include hypertension, dyslipidemia, coronary artery disease, congestive heart failure, hypothyroidism, and systemic lupus. He has a history of prior stroke. He has undergone coronary artery bypass surgery. He has had a previous cholecystectomy, and he has undergone removal of colonic polyps. He underwent right inguinal hernia repair at [facility] in March 2016. He has history of smoking 1-1/2 packs of cigarettes daily for 60 years, but he quit smoking approximately 2006. INTERIM HISTORY: As of August 2019 he had been scheduled to begin a trial of therapy with luspatercept, but he opted to put off treatment due to the coronavirus pandemic. Last month he underwent vascular procedures on both legs due to his chronic venous insufficiency. His repeat CBC on 10/22/2019 showed further decline in his hemoglobin to 7.3 g, but at that time he declined transfusion. It is noted that his last transfusion services was 2 units on November 18, 2019 which time his hemoglobin was 8.1. He also began luspatercept on November 18, 2019. He has tolerated it well thus far. He is here today for follow-up. He states overall he feels really good. He states he feels better. His energy is better. He is eating better. He states he can walk now about 70 yards without having to stop and rest. He states he still has shortness of breath but it is better overall. He denies any fever or chills. He has had no nausea or vomiting. He denies any diarrhea. Still has some constipation off and on but states that that is well controlled. He denies any lower extremity edema. He denies any pain. He denies any angina or palpitations. He states his been a bit more active going out to his barn more and tolerates this well. He denies any mouth sores, sore throat or difficulty swallowing. His ECOG is 1 Past Medical History: Adrenal nodule (left) Anemia Congestive heart failure Coronary artery disease Dyslipidemia Hypertension Hypothyroidism Myocardial infarction O2 dependent Stroke Systemic Lupus Atoric stent placement in 2018 ANEMIA,SLE,DYSLIPIDEMIA,left adrenal nodule, labile HTN, lower GI bleed with cecal AVM, [place] WITH CABG X 2, Hernia repair 2008, Cholesystectomy 2010. Past Surgical History: Cabg x2 Cholecystectomy Colon polyp removal Coronary artery bypass - 3 VESSELS Flu vaccine in 2013 Bone marrow aspiration in 2011 Bone marrow biopsy in 2011 COLON POLYP REMOVAL Allergies: No Known Allergies. Medications: Carvedilol 1 (6.25 mg) Tablet Oral b.i.d. Combigan 1 drop(s) (of 0.2-0.5 %) Solution Ophthalmic daily Furosemide (40 mg) Tablet Oral Take as Directed Latanoprost 1 Drop(s) (of 0.005 %) Solution Ophthalmic daily Magnesium 1 (400 mg) Tablet Oral daily Nitroglycerin 1 (0.4 mg) Tablet, sublingual Sublingual PRN Ocuvite 1 Tablet Oral daily Plavix 1 (75 mg) Tablet Oral daily Potassium Chloride ER 1 (10 meq) Capsule, controlled release Oral daily PredniSONE 1 Tablet (of 5 mg) Oral daily Simvastatin 1 (20 mg) Tablet Oral daily Vitamin B12 1 Tablet (of 5000 mcg) Oral daily Family History: Mr. lAarcons mother at age 89: cancer history consists of Colon cancer. Mr. Sylvester's father is : medical history includes [place] (cause of ). Mr. Sylvester has 1 brother who is : medical history includes [place] at age 44 (cause of ). MOTHER WAS DX WITH COLON CA AT AGE 66,FATHER OF [place],BROTHER AT AGE 44 FROM [place]. Social History: Mr. Sylvester is and he is retired. Mr. Sylvester no longer smokes. Mr. Sylvester reports the following support systems: lives alone, lives in own house, supportive family/friends willing to assist with needs, and adequate transportation available for expected visits. His diet consists of regular meals. He indicates his activity level as: daily activities. Review Of Symptoms: Constitutional Denies fevers, chills, night sweats. He states he feels good overall. Allergic/Immunologic No reactions. Eyes Denies significant visual changes. ENMT Denies changes in hearing, sore throat, mouth sores, difficulty or changes in swallowing ability. Endocrine Denies hot flashes or night sweats. Hematologic/Lymphatic Denies easy bleeding. The patient denies any tender or palpable lymph nodes. Easy bruising Breasts Denies breast masses, nipple discharge, nipple inversion and pain. Respiratory Denies chest pain, cough. Dyspnea upon exertion. Cardiovascular Denies anginal chest pain. Gastrointestinal Denies nausea, vomiting, diarrhea, heartburn. Chronic constipation but controlled at present. Genitourinary (M) Denies hematuria, dysuria, increased frequency, hesitancy or incontinence. Musculoskeletal Denies joint pain, swelling or redness. No decreased range of motion. Integumentary Denies chronic rashes, inflammation, ulcerations or skin changes. Neurologic Denies headache, blurred vision. Psychiatric Denies insomnia, depression, anxiety. Vital Signs: Performed on Dec 09, 2019 11:23 Height - 71.00 in Weight - 179.2 lbs (LOW) BSA - 2.01 sq.m BMI - 24.99 Temperature - 97.0 F (LOW) Pulse - 80 /min Respiration - 18 /min BP - 162/87 mm(hg) (HIGH) O2 Sat - 93 % (LOW) Pain - 0,1 - No physically strenuous activity, but ambulatory and able to carry out light or sedentary work (e.g. office work, light house work). (ECOG) Physical Examination: Constitutional Alert, oriented, no acute distress. Skin pink, warm and dry. Head Normocephalic; atraumatic. Eyes Conjunctivae and sclerae are clear and without icterus. Pupils are reactive and equal. Neck Supple without masses or thyromegaly. No jugular venous distension. Hematologic/Lymphatic No petechiae or purpura. Respiratory Lungs are clear to auscultation after cough but scattered rales before cough without rhonchi or wheezing. Cardiovascular Regular rate and rhythm of heart with soft systolic flow murmur, but no clicks, gallops or rubs. Chest Chest is symmetric without chest wall deformities. Abdomen Non-tender, non-distended, no masses, ascites or hepatosplenomegaly.Good bowel sounds noted in all quads. No guarding or rebound tenderness. No pulsatile masses. Back/Spine Non-tender to palpation. Extremities No visible deformities, no cyanosis, clubbing or edema. Musculoskeletal No tenderness or swelling, normal range of motion without obvious weakness. Integumentary No rashes or lesions. Psychiatric Alert and oriented times three. Coherent speech. Verbalizes understanding of our discussions today. Laboratory:Test performed on Dec 09, 2019 09:22 LDH (Total) 425 U/L Sodium 142 mmol/L Potassium 4.5 mmol/L Chloride 103 mmol/L CO2 32 mmol/L Anion Gap 11.5 BUN 20 mg/dL Creatinine 0.9 mg/dL Cr Clearance (Est) 77.0100 mL/min Glucose 117 mg/dL Calcium 9.5 mg/dL Protein, Total 6.7 g/dL Albumin 4.1 g/dL Globulin 2.6 g/dL Bilirubin, Total 0.6 mg/dL ALT (SGPT) 25 U/L AST (SGOT) 25 U/L Alkaline Phosphatase 95 IU/L WBC 4.1 10 3/uL Polychromasia 1+ RBC 2.80 10 6/uL Anisocytosis 1+ HGB 10.3 g/dL HCT 33.2 % MCV 118.6 fL MCH 36.8 pg Poikilocytosis 1+ MCHC 31.0 g/dL Platelet Count 528 10 3/cmm MPV 10.3 fL Neutrophils 1.80 10 3/uL Lymphocytes 0.9 10 3/uL Monocytes 1.2 10 3/uL Eosinophils 0.0 10 3/uL Basophils 0.1 10 3/uL Neutrophil % 43.5 % Lymphocyte % 22.8 % Monocyte % 28.8 % Stomatocytes 1+ Eosinophil % 1.0 % Basophils % 1.2 % NRBC % 0 % CBC Slide Review Slide Review Perform SLIDE REVIEW AGREES WITH AUTOMATED RESULTS ST Test performed on Nov 28, 2019 15:06 Magnesium 2.1 mg/dL T4, Free 0.9 ng/dL TSH 7.48 uU/mL Test performed on Nov 18, 2019 09:05 RDW 23.1 % Test performed on Jul 10, 2019 09:08 Ferritin 591 ng/mL Iron 145 ug/dL UIBC 55 ug/dL Test performed on Jul 01, 2019 17:18 Vitamin B12 1034 pg/mL Cholesterol, Total 95 mg/dL HDL Cholesterol 44 mg/dL LDL Cholesterol 28 mg/dL VLDL Cholesterol 23.2 mg/dL BUN/Creatinine Ratio 22 Absolute Value Triglycerides 116 mg/dL Impression: 1. 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 2. He has had evidence of underlying autoimmune disease, including systemic lupus erythematosus. 3. His anemia has shown response to immunosuppressive therapy, which has included steroid therapy and rituximab. He appeared, though, to have failed treatment with cyclosporine. 4. He also had benefit with an erythropoietin stimulating agent. 5. He was hospitalized with non-ST elevation myocardial infarction in November 2015. At that point it was felt that he was not eligible for further treatment with an erythropoietin stimulating agent. His other medical illnesses include: 6. Hypertension. 7. Dyslipidemia. 8. Coronary artery disease. 9. He has history of atrial fibrillation and congestive heart failure. 10. Hypothyroidism. 11. History of prior stroke. He had initially been stable clinically following the myocardial infarction in November 2015, but with some decline in his hemoglobin/hematocrit levels. His repeat bone marrow aspiration/biopsy on 06/29/2016 showed absent storage iron consistent with iron deficiency. The marrow was hypercellular, but there were no other diagnostic findings. I was uncertain of the clinical significance of the absent storage iron, as he had normal transferrin saturation and elevated ferritin. He was given a single infusion of Injectafer on 08/17/2016. There was no observable response. He required transfusion again in August 2016. As of December 2016 his hemoglobin had declined under 9 g, and he also developed mild leukopenia. His repeat bone marrow aspiration/biopsy on 03/05/2017 was consistent with myelodysplastic syndrome (MDS with ring sideroblasts). His IPSS-R score calculated to 3.0, low risk. During subsequent followup his hemoglobin level remained stable in the range of 8-9 g, above transfusion threshold. As of 05/31/2017 his hemoglobin had dropped to 7.3 g. He was transfused 2 U of packed red blood cells. He then started a trial of therapy with Revlimid 10 mg daily. He required another transfusion of PRBC within 1 month after starting the Revlimid. During subsequent follow-up, he continued to have moderately severe anemia. He then developed severe neutropenia, and as of his follow-up visit on 08/23/2017 the Revlimid was put on hold. During subsequent follow-up he remained transfusion dependent, but he did have recovery of his neutrophil count. As of February 2018 he began chelation therapy with deferasirox, as his ferritin had become significantly elevated. It was stopped in September 2018 with the ferritin level had dropped below 500 ng/mL. On 11/27/2018 he was admitted to the hospital after falling at home and sustaining left hip fracture. He had a gradual recovery following that surgery, though he has since then had worsened bladder function with difficulty voiding. He has chronic edema and he required treatment at wound care clinic for venous stasis ulcers on both legs. In September 2019 he underwent a vascular procedure to both legs for the venous insufficiency. He has had significant improvement in his edema. He is tolerating the luspatercept well thus far. Plan: 1. Proceed with cycle 2 luspatercept 1 mg/kg by subcutaneous injection every 3 weeks, as it is now FDA approved for treatment of myelodysplastic syndrome with ring sideroblasts. 2. His last blood transfusion was on November 18, 2019 at which time he received 2 units. 3. Labs from today were reviewed in detail and discussed with Mr. Sylvester and a copy was given to him. WBC 4.1, hemoglobin 10.3, platelets 528,000 ANC is 1800. Creatinine 0.9 LFTs are normal random glucose was 117. LDH was 425. Last LDH we had on him was July 10, 2019 at which time was 338. He did have a TSH on November 28, 2019 at 7.48 and his medication was adjusted at that time. 4. We will plan to see him back in 3 weeks with CBC CMP and LDH. 5. Mr. Sylvester was instructed to contact us in the interim should questions or problems arise. . Signed By: Lexx Mac-, AOCNP Craig Grayson MD <<Signature on File>>
== END 2019-12-09 09:07 | disposition home or self-care (01) ==
LOC: ONCMED 09:10
PROVIDERS: PCP Family Medicine; Visit Provider Nurse Practitioner
DX: D46.1 Refractory anemia with ring sideroblasts (principal); D50.9 Iron deficiency anemia, unspecified; D60.0 Chronic acquired pure red cell aplasia; D46.9 Myelodysplastic syndrome, unspecified
CPT/HCPCS: 80053; 83615; 85025; 96372; 99214; J0896

== ENCOUNTER 2019-12-30 09:12 | Outpatient (CLI) | payer MEDICARE, SELFPAY ==
[2019-12-30 09:51] LABS: Basophils % 1.1 %; Eosinophils % 1.1 %; Hematocrit 31.8 % (42.0-52.0); Hemoglobin 9.8 g/dL (11.7-16.6); Lymphocytes % 27.1 %; Mean Corpuscular HGB Conc 30.8 g/dL (30.0-36.0); Mean Corpuscular Hemoglobin 37.5 pg (28.0-34.0); Mean Corpuscular Volume 121.8 fL (80-94); Mean Platelet Volume 10.6 fL (7.4-10.4); Monocytes # 1.2 10^3/uL (0.2-0.9); Neutrophils # 1.36 10^3/uL (1.8-7.7); Neutrophils % 36.4 %; Nucleated Red Blood Cells % 0 %; Platelet Count 389 10^3/cmm (130-400); Red Blood Count 2.61 10^6/uL (4.1-5.3); Red Cell Distribution Width 25.4 % (12.1-15.1); White Blood Count 3.7 10^3/uL (4.0-10.0)
[2019-12-30 10:18] LABS: Alanine Aminotransferase 33 U/L (0-41); Alkaline Phosphatase 92 IU/L (40-130); Anion Gap 11.7 (5-19); Aspartate Amino Transferase 34 U/L (0-40); Blood Urea Nitrogen 26 mg/dL (8-23); Calcium 8.5 mg/dL (8.5-10.5); Carbon Dioxide 38 mmol/L (22-29); Chloride 99 mmol/L (98-107); Globulin 2.7 g/dL (1.3-4.6); Glucose 109 mg/dL (65-115); Osmolality Calculated 297 mOsm/kg (285-295); Potassium 3.7 mmol/L (3.5-5.1); Sodium 145 mmol/L (136-145); Total Bilirubin 0.7 mg/dL (0.15-1.2); Total Protein 6.7 g/dL (6.6-8.7)
--- NOTE | 2020-01-03 17:42 | ONC FU_ITS ---
Dr. Grayson Patient Follow-Up Note Patient: Mike Sylvester Unit #: [id number]: [id number] Dicatated By: Craig Grayson M.D.Date of Visit:Dec 30, 2019 Onc Med Follow-up/Prog Note Chief Complaint: Myelodysplastic syndrome. 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 He has had long-standing anemia, refractory to erythropoietin stimulating agents. He was first seen here by Dr. Smith on 06/24/2011. 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 He had abundant proliferation of granulocytes and megakaryocytes with mild dyspoiesis. Flow cytometry, cytogenetics, FISH panel for MDS and reticulin stains were unrevealing. Flow cytometry for PNH was negative, and JAK2 and BCR/abl studies were unrevealing. He was diagnosed with systemic lupus erythematosus, and established care with rheumatology. His further workup revealed positive SLE serology, with positive antibodies for SSA, SSB, LICENSED PROSTHETIST/ORTHOTIST, and scleroderma. Complement levels C3, C4 were reduced. He responded to high dose prednisone, eventually tapered off in September of 2011 with hemoglobin recovered to 10-11 g/dL and transfusion independent. He was doing well until December of 2011, when he presented with recurrent anemia with hemoglobin 8.3 g/dL, and symptomatic CHF. At that time prednisone was restarted and tapered but also cyclosporin 100 mg by mouth 3 times a day was added. His anemia remained stable between 9-10 g/dL, and he was tolerating cyclosporin well. Since May 2012 he was under the care of Dr. Delgado in [place], as it was closer to home. He was receiving transfusion support about 3-4 times per year, Epogen injections monthly. He continued on cyclosporin at 100 mg three times a day. 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 Since July of 2013 had been receiving Epogen weekly, as he had more refractory anemia. In interim he required an AICD placement for his ischemic cardiomyopathy in September of 2013. In October 2013, he developed flash pulmonary edema associated with hemoglobin bruce around 7 g/dL. He was seen here again on 11/13/2013. While he remained on therapy with cyclosporin, his repeat bone marrow biopsy on 11/14/2013 was essentially unchanged. He had total of 80% cellularity with some limited dyspoiesis in megakaryocytes. He continued to have only 6% of red cells precursors. Cytogenetics failed to culture metaphase cells. FISH panel for MDS was negative. ESR 52, LDH 385 without hemolysis, and erythropoietin level 251. Thus, it had become clear that he was not responding to cyclosporine therapy. Cyclosporine and Epo injections were stopped to get a better sense of a new baseline. Prednisone 80 mg was restarted on 12/05/2013. Two weeks after steroid therapy his hemoglobin increased from 8.2 g/dL to 9.7 g/dL, indicating positive response, providing further evidence that an underlying immune process was affecting the RBC precursors. CT of the chest on 12/12/2013 showed no evidence of thymoma. He had moderate emphysema, indeterminate mediastinal lymph nodes up to 11 mm, stable left adrenal mass and a mild splenic enlargement. Given evidence of lupus like autoimmune condition, the alternative immunosuppressive therapy with rituximab began on 12/26/2013, as per discussion with Dr. Contreras, at [facility]. He received 4 weekly doses, completed on 01/16/14, and steroids were titrated down faster. Aranesp was restarted. His hemoglobin recovered and remained stable at above 10 g/dL, indicating positive response to rituximab treatment. He had a follow up with Dr Contreras at [facility], clonal evolution by next generation sequencing showed a new clonal mutation, confirming diagnosis of MDS. Second trial of rituximab began on 08/06/14- 08/27/14. Aranesp decreased down to every 2 weeks. The patient received cycle 3 of rituximab therapy from 01/28/15 to 02/18/15. He was doing well without complications. He continued on Aranesp therapy, and his hemoglobin remained stable. On 02/27/15 he was admitted with unstable angina. He required blood transfusion, but was refractory to it. Percutaneous coronary intervention was attempted, but reportedly was not successful. His hemoglobin declined to 8.4 g/dL in July 2015, recovered to 10 g/dL with the trial of steroids once again. His hemoglobin stabilized at 9.8 g/dL, and he completed steroid taper. His therapy was changed to Aranesp every 3 weeks because of the issues with transportation. He had a non-ST elevated myocardial infarction in November 2015, for which he underwent cardiac catheterization on 12/10/2015. He was found to have severe three-vessel disease with occluded grafts. There also was evidence of severe ischemic cardiomyopathy. Apparently it was felt that his disease was not amenable to any intervention. However, in the setting of symptomatic underlying coronary artery disease, he was deemed to be inappropriate for treatment with an erythropoietin stimulating agent, and the Aranesp was discontinued. He continued low-dose prednisone. He underwent repeat bone marrow aspiration/biopsy on 06/29/2016. Cellularity was increased, estimated at 75-80%. There was mild megakaryocyte dyspoiesis. There was no significant dyserythropoiesis noted. Blasts were reported at 0%. There was no storage iron identified. The FISH panel for MDS was unrevealing and the standard chromosome analysis was normal. The findings were nondiagnostic other than the apparent iron deficiency. He was given parenteral iron replacement with a single infusion of Injectafer on 08/17/2016. There was no observable response, as his follow-up CBC on 09/09/2016 showed his hemoglobin down to 7.7 g compared to 8.7 g on 08/04/2016. At that point he did receive a transfusion of 1 unit of packed red blood cells. As of December 2016 his hemoglobin level had decreased to under 9 g, and he also developed mild leukopenia. He underwent repeat bone marrow aspiration/biopsy on 03/05/2017. The marrow was hypercellular at 90-95%. There was evidence of megakaryocyte disc dyspoiesis. Erythroid precursors were noted to be decreased, and there was limited dyserythropoiesis. Iron stores were 1+. Ring sideroblasts were present, accounting for 20% of nucleated red cells. Blasts were estimated at 3%. The FISH panel for MDS was unrevealing, and the standard chromosome analysis was normal. Overall, the findings were felt to be consistent with myelodysplastic syndrome (MDS with ring sideroblasts). During subsequent follow-up on low-dose prednisone he continued to have moderately severe anemia, but above transfusion threshold. However, on 05/31/2017 his hemoglobin had dropped to 7.3 g. He was significantly more fatigued and short of breath. He was given a transfusion of 2 U of packed red blood cells on 06/01/2017. He then began a trial of therapy with Revlimid 10 mg daily. During subsequent follow-up he continued to have moderately severe anemia. He required transfusion again on 07/21/2017. He then developed severe neutropenia, ANC 600. As of 08/23/2017 the Revlimid was put on hold. His subsequent blood counts continued to show anemia and neutropenia. He required further transfusions on 08/31/2017 and on 09/27/2017. During this time, he underwent placement of a Watchman SILVIA occlusion device. He had no complications with the procedure. He initially continued anticoagulation with apixaban 2.5 mg twice a day together with clopidogrel 75 mg daily, but it was later changed to just aspirin. He also has continued immunosuppressive therapy with hydroxychloroquine 200 mg twice a day and prednisone 5 mg daily. He remained transfusion dependent. As of February 2018 his ferritin level had increased to 1153 ng/mL, and he then started treatment with deferasirox. It was stopped in September 2018 after his ferritin level had dropped to less than 500 ng/mL. On 11/27/2018 he was admitted to the hospital after falling at home and sustaining a left hip fracture. He apparently developed an infection postoperatively, but eventually was transferred to rehabilitation on 12/20/2018 and he was able to return home on 01/05/2019. During that time he was taken off hydroxychloroquine. He continued on low-dose prednisone at 5 mg daily. His other medical illnesses include hypertension, dyslipidemia, coronary artery disease, congestive heart failure, hypothyroidism, and systemic lupus. He has a history of prior stroke. He has undergone coronary artery bypass surgery. He has had a previous cholecystectomy, and he has undergone removal of colonic polyps. He underwent right inguinal hernia repair at [facility] in March 2016. He has history of smoking 1-1/2 packs of cigarettes daily for 60 years, but he quit smoking approximately 2006. INTERIM HISTORY: As of August 2019 he had been scheduled to begin a trial of therapy with luspatercept, but he opted to put off treatment due to the coronavirus pandemic. In September he underwent vascular procedures on both legs due to his chronic venous insufficiency. His repeat CBC on 10/22/2019 showed further decline in his hemoglobin to 7.3 g, but at that time he declined transfusion. On 11/18/2019 he returned for his initial injection of luspatercept. At that time his hemoglobin was still low at 8.1 g, and he did opt to receive 2 units PRBC. He received a second injection of luspatercept on 12/09/2019. His hemoglobin at that point was up to 10.3 g. He is seen for a follow-up visit. He has been feeling better generally. His activity is still limited, but his energy is better and he says that he feels like doing things. His ECOG score is 1. He has good appetite. He has no fever or night sweats. He still has shortness of breath with activity. He has not been having chest pain. He has developed constipation. He has no other GI complaints. He has ongoing problems with his bladder function. He has no significant joint or bone pain. He gets lightheaded when his blood pressure is low, and that still occurs off and on. He has reduced the frequency of his furosemide to 3 days a week. He has no focal neurologic symptoms. Medications: Carvedilol 1 (6.25 mg) Tablet Oral b.i.d., Combigan 1 drop(s) (of 0.2-0.5 %) Solution Ophthalmic daily, Furosemide (40 mg) Tablet Oral Take as Directed, Latanoprost 1 Drop(s) (of 0.005 %) Solution Ophthalmic daily, Luspatercept-aamt (88 mg) Subcutaneous q 3 weeks, Magnesium 1 (400 mg) Tablet Oral daily, Nitroglycerin 1 (0.4 mg) Tablet, sublingual Sublingual PRN, Ocuvite 1 Tablet Oral daily, Plavix 1 (75 mg) Tablet Oral daily, Potassium Chloride ER 1 (10 meq) Capsule, controlled release Oral daily, PredniSONE 1 Tablet (of 5 mg) Oral daily, Simvastatin 1 (20 mg) Tablet Oral daily, Vitamin B12 1 Tablet (of 5000 mcg) Oral daily Allergies: No Known Allergies. Review of Systems: Constitutional - He has been feeling pretty good. His energy is better, though he still has limited activity. His appetite is good and weight is down a few pounds. No fever, night sweats, or hot flashes. ECOG score is 1, ENMT - No sinus congestion/drainage. No mouth sores. No sore throat or difficulty swallowing, Hematologic/Lymphatic - He has bruising, but no other bleeding, Respiratory - He gets short of breath with activity. No cough. No pleuritic pain or hemoptysis, Cardiovascular - No angina pain. No palpitations, Gastrointestinal - No nausea or vomiting. No heartburn or acid reflux. No diarrhea. He is having constipation. No blood in the stool or black stools, Genitourinary (M) - No dysuria or hematuria. He has urinary frequency with urgency, and he also has hesitancy. No incontinence, Musculoskeletal - No joint or bone pain, Integumentary - His skin ulcerations have healed, Neurologic - No headache. He has lightheadedness when his blood pressure gets low. No numbness or tingling. No other focal neurologic symptoms, Psychiatric - No anxiety or depression. He does not sleep well. Vital Signs: Performed on Dec 30, 2019 09:44 Height - 71.00 in Weight - 177.4 lbs (LOW) BSA - 2.00 sq.m BMI - 24.74 Temperature - 97.2 F (LOW) Pulse - 80 /min Respiration - 20 /min BP - 134/69 mm(hg) O2 Sat - 94 % (LOW) Pain - 0 Physical Examination: Constitutional - He looks better generally, Eyes - Sclerae nonicteric. Conjunctivae clear, ENMT - No lesions noted in the oral cavity, Hematologic/Lymphatic - No cervical, clavicular, or axillary adenopathy, Respiratory - Lungs sound clear with some decrease in air movement bilaterally, Cardiovascular - Heart rhythm is regular. There is a II/ systolic murmur. There is no gallop or rub noted, Abdomen - Soft. Liver and spleen are not enlarged. There is no abdominal mass or ascites noted and there is no inguinal adenopathy, Extremities - Slight edema, Neurologic - No focal neurologic deficits noted. Lab/Imaging: Test performed on Dec 30, 2019 09:20 Sodium 145 mmol/L Potassium 3.7 mmol/L Chloride 99 mmol/L CO2 38 mmol/L Anion Gap 11.7 BUN 26 mg/dL Creatinine 0.9 mg/dL Cr Clearance (Est) 77.0100 mL/min Glucose 109 mg/dL Calcium 8.5 mg/dL Protein, Total 6.7 g/dL Albumin 4.0 g/dL Globulin 2.7 g/dL Bilirubin, Total 0.7 mg/dL ALT (SGPT) 33 U/L AST (SGOT) 34 U/L Alkaline Phosphatase 92 IU/L WBC 3.7 10 3/uL RBC 2.61 10 6/uL HGB 9.8 g/dL HCT 31.8 % MCV 121.8 fL MCH 37.5 pg MCHC 30.8 g/dL RDW 25.4 % Platelet Count 389 10 3/cmm MPV 10.6 fL Neutrophils 1.36 10 3/uL Lymphocytes 1.0 10 3/uL Monocytes 1.2 10 3/uL Eosinophils 0.0 10 3/uL Basophils 0.0 10 3/uL Neutrophil % 36.4 % Lymphocyte % 27.1 % Monocyte % 33.0 % Eosinophil % 1.1 % Basophils % 1.1 % NRBC % 0 % Impression: 1. 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 2. He has had evidence of underlying autoimmune disease, including systemic lupus erythematosus. 3. His anemia has shown response to immunosuppressive therapy, which has included steroid therapy and rituximab. He appeared, though, to have failed treatment with cyclosporine. 4. He also had benefit with an erythropoietin stimulating agent. 5. He was hospitalized with non-ST elevation myocardial infarction in November 2015. At that point it was felt that he was not eligible for further treatment with an erythropoietin stimulating agent. His other medical illnesses include: 6. Hypertension. 7. Dyslipidemia. 8. Coronary artery disease. 9. He has history of atrial fibrillation and congestive heart failure. 10. Hypothyroidism. 11. History of prior stroke. He had initially been stable clinically following the myocardial infarction in November 2015, but with some decline in his hemoglobin/hematocrit levels. His repeat bone marrow aspiration/biopsy on 06/29/2016 showed absent storage iron consistent with iron deficiency. The marrow was hypercellular, but there were no other diagnostic findings. I was uncertain of the clinical significance of the absent storage iron, as he had normal transferrin saturation and elevated ferritin. He was given a single infusion of Injectafer on 08/17/2016. There was no observable response. He required transfusion again in August 2016. As of December 2016 his hemoglobin had declined under 9 g, and he also developed mild leukopenia. His repeat bone marrow aspiration/biopsy on 03/05/2017 was consistent with myelodysplastic syndrome (MDS with ring sideroblasts). His IPSS-R score calculated to 3.0, low risk. During subsequent followup his hemoglobin level remained stable in the range of 8-9 g, above transfusion threshold. As of 05/31/2017 his hemoglobin had dropped to 7.3 g. He was transfused 2 U of packed red blood cells. He then started a trial of therapy with Revlimid 10 mg daily. He required another transfusion of PRBC within 1 month after starting the Revlimid. During subsequent follow-up, he continued to have moderately severe anemia. He then developed severe neutropenia, and as of his follow-up visit on 08/23/2017 the Revlimid was put on hold. During subsequent follow-up he remained transfusion dependent, but he did have recovery of his neutrophil count. As of February 2018 he began chelation therapy with deferasirox, as his ferritin had become significantly elevated. It was stopped in September 2018 with the ferritin level had dropped below 500 ng/mL. On 11/27/2018 he was admitted to the hospital after falling at home and sustaining left hip fracture. He had a gradual recovery following that surgery, though he has since then had worsened bladder function with difficulty voiding. He has chronic edema and he required treatment at wound care clinic for venous stasis ulcers on both legs. In September 2019 he underwent a vascular procedure to both legs for the venous insufficiency. He had significant improvement in his edema following that procedure. He continued, though, to have moderately severe anemia, and on 11/18/2019 he began a trial of therapy with luspatercept at 1 mg/kg by subcutaneous injection every 3 weeks. Thus far he has tolerated the luspatercept with no adverse effects other than he has recently developed some constipation. There has been a significant increase in the hemoglobin/hematocrit levels, but at this point it is uncertain what extent that is due to the medication as opposed to his transfusion in October. Plan: He will be given his 3rd injection of luspatercept at the 1 mg/kg dosage. He will return for treatment again in 3 weeks and for a follow-up visit in 6 weeks. Signed By: Craig Grayson M.D. <<Signature on File>>
== END 2019-12-30 09:13 | disposition home or self-care (01) ==
PROVIDERS: Nurse Practitioner; PCP Family Medicine; Visit Provider Internal Medicine Medical Oncology
DX: D46.1 Refractory anemia with ring sideroblasts (principal); D60.0 Chronic acquired pure red cell aplasia; I10 Essential (primary) hypertension; E78.5 Hyperlipidemia, unspecified; I25.10 Atherosclerotic heart disease of native coronary artery without angina pectoris; I48.91 Unspecified atrial fibrillation; I50.9 Heart failure, unspecified; E03.9 Hypothyroidism, unspecified; I25.2 Old myocardial infarction; Z86.73 Personal history of transient ischemic attack (TIA), and cerebral infarction without residual deficits; Z79.899 Other long term (current) drug therapy
CPT/HCPCS: 80053; 85025; 96372; 99214; J0896

== ENCOUNTER 2020-01-20 08:32 | Outpatient (CLI) | payer MEDICARE, SELFPAY ==
[2020-01-20 08:58] LABS: Basophils # 0.1 10^3/uL (0.0-0.1); Basophils % 1.2 %; Eosinophils # 0.1 10^3/uL (0.0-0.8); Eosinophils % 1.5 %; Hematocrit 31.9 % (42.0-52.0); Hemoglobin 9.7 g/dL (11.7-16.6); Lymphocytes # 1.2 10^3/uL (0.8-4.8); Mean Corpuscular HGB Conc 30.4 g/dL (30.0-36.0); Mean Corpuscular Hemoglobin 38.3 pg (28.0-34.0); Mean Corpuscular Volume 126.1 fL (80-94); Mean Platelet Volume 10.5 fL (7.4-10.4); Monocytes % 24.8 %; Neutrophils # 1.65 10^3/uL (1.8-7.7); Nucleated Red Blood Cells % 0 %; Platelet Count 356 10^3/cmm (130-400); Red Blood Count 2.53 10^6/uL (4.1-5.3); Red Cell Distribution Width 22.2 % (12.1-15.1)
== END 2020-01-20 08:33 | disposition home or self-care (01) ==
LOC: ONCMED 08:35
PROVIDERS: PCP Family Medicine; Visit Provider Internal Medicine Medical Oncology
DX: D46.1 Refractory anemia with ring sideroblasts (principal)
CPT/HCPCS: 36415; 85025; 96372; J0896

== ENCOUNTER 2020-02-10 05:46 | Outpatient (CLI) | payer MEDICARE, SELFPAY ==
[2020-02-10 09:22] LABS: Basophils # 0.1 10^3/uL (0.0-0.1); Basophils % 1.6 %; Eosinophils # 0.1 10^3/uL (0.0-0.8); Eosinophils % 1.4 %; Hemoglobin 10.4 g/dL (11.7-16.6); Lymphocytes # 1.2 10^3/uL (0.8-4.8); Lymphocytes % 32.2 %; Mean Corpuscular HGB Conc 30.6 g/dL (30.0-36.0); Mean Corpuscular Hemoglobin 40.5 pg (28.0-34.0); Mean Corpuscular Volume 132.3 fL (80-94); Mean Platelet Volume 10.9 fL (7.4-10.4); Monocytes # 1.1 10^3/uL (0.2-0.9); Neutrophils % 32.8 %; Nucleated Red Blood Cells % 0 %; Platelet Count 369 10^3/cmm (130-400); Red Blood Count 2.57 10^6/uL (4.1-5.3); Red Cell Distribution Width 18.2 % (12.1-15.1); White Blood Count 3.7 10^3/uL (4.0-10.0)
[2020-02-10 09:35] LABS: Alanine Aminotransferase 18 U/L (0-41); Alkaline Phosphatase 101 IU/L (40-130); Aspartate Amino Transferase 22 U/L (0-40); Blood Urea Nitrogen 16 mg/dL (8-23); Calcium 8.9 mg/dL (8.5-10.5); Carbon Dioxide 33 mmol/L (22-29); Chloride 98 mmol/L (98-107); Globulin 2.7 g/dL (1.3-4.6); Glucose 115 mg/dL (65-115); Lactate Dehydrogenase 379 U/L (135-225); Osmolality Calculated 289 mOsm/kg (285-295); Sodium 141 mmol/L (136-145); Total Bilirubin 0.7 mg/dL (0.15-1.2); Total Protein 6.7 g/dL (6.6-8.7)
--- NOTE | 2020-02-14 17:37 | ONC FU_ITS ---
Dr. Grayson Patient Follow-Up Note Patient: Mike Sylvester Unit #: [id number]: 1935 Dicatated By: Craig Grayson M.D.Date of Visit:Feb 10, 2020 Onc Med Follow-up/Prog Note Chief Complaint: Myelodysplastic syndrome. 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 He has had long-standing anemia, refractory to erythropoietin stimulating agents. He was first seen here by Dr. Smith on 06/24/2011. 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 He had abundant proliferation of granulocytes and megakaryocytes with mild dyspoiesis. Flow cytometry, cytogenetics, FISH panel for MDS and reticulin stains were unrevealing. Flow cytometry for PNH was negative, and JAK2 and BCR/abl studies were unrevealing. He was diagnosed with systemic lupus erythematosus, and established care with rheumatology. His further workup revealed positive SLE serology, with positive antibodies for SSA, SSB, [employer], and scleroderma. Complement levels C3, C4 were reduced. He responded to high dose prednisone, eventually tapered off in September of 2011 with hemoglobin recovered to 10-11 g/dL and transfusion independent. He was doing well until December of 2011, when he presented with recurrent anemia with hemoglobin 8.3 g/dL, and symptomatic CHF. At that time prednisone was restarted and tapered but also cyclosporin 100 mg by mouth 3 times a day was added. His anemia remained stable between 9-10 g/dL, and he was tolerating cyclosporin well. Since May 2012 he was under the care of Dr. Delgado in [place], as it was closer to home. He was receiving transfusion support about 3-4 times per year, Epogen injections monthly. He continued on cyclosporin at 100 mg three times a day. He ran out of methimazole and did not follow up with his distribution field engineer. Since July of 2013 had been receiving Epogen weekly, as he had more refractory anemia. In interim he required an AICD placement for his ischemic cardiomyopathy in September of 2013. In October 2013, he developed flash pulmonary edema associated with hemoglobin bruce around 7 g/dL. He was seen here again on 11/13/2013. While he remained on therapy with cyclosporin, his repeat bone marrow biopsy on 11/14/2013 was essentially unchanged. He had total of 80% cellularity with some limited dyspoiesis in megakaryocytes. He continued to have only 6% of red cells precursors. Cytogenetics failed to culture metaphase cells. FISH panel for MDS was negative. ESR 52, LDH 385 without hemolysis, and erythropoietin level 251. Thus, it had become clear that he was not responding to cyclosporine therapy. Cyclosporine and Epo injections were stopped to get a better sense of a new baseline. Prednisone 80 mg was restarted on 12/05/2013. Two weeks after steroid therapy his hemoglobin increased from 8.2 g/dL to 9.7 g/dL, indicating positive response, providing further evidence that an underlying immune process was affecting the RBC precursors. CT of the chest on 12/12/2013 showed no evidence of thymoma. He had moderate emphysema, indeterminate mediastinal lymph nodes up to 11 mm, stable left adrenal mass and a mild splenic enlargement. Given evidence of lupus like autoimmune condition, the alternative immunosuppressive therapy with rituximab began on 12/26/2013, as per discussion with Dr. Contreras, at [facility]. He received 4 weekly doses, completed on 01/16/14, and steroids were titrated down faster. Aranesp was restarted. His hemoglobin recovered and remained stable at above 10 g/dL, indicating positive response to rituximab treatment. He had a follow up with Dr Contreras at [facility], clonal evolution by next generation sequencing showed a new clonal mutation, confirming diagnosis of MDS. Second trial of rituximab began on 08/06/14- 08/27/14. Aranesp decreased down to every 2 weeks. The patient received cycle 3 of rituximab therapy from 01/28/15 to 02/18/15. He was doing well without complications. He continued on Aranesp therapy, and his hemoglobin remained stable. On 02/27/15 he was admitted with unstable angina. He required blood transfusion, but was refractory to it. Percutaneous coronary intervention was attempted, but reportedly was not successful. His hemoglobin declined to 8.4 g/dL in July 2015, recovered to 10 g/dL with the trial of steroids once again. His hemoglobin stabilized at 9.8 g/dL, and he completed steroid taper. His therapy was changed to Aranesp every 3 weeks because of the issues with transportation. He had a non-ST elevated myocardial infarction in November 2015, for which he underwent cardiac catheterization on 12/10/2015. He was found to have severe three-vessel disease with occluded grafts. There also was evidence of severe ischemic cardiomyopathy. Apparently it was felt that his disease was not amenable to any intervention. However, in the setting of symptomatic underlying coronary artery disease, he was deemed to be inappropriate for treatment with an erythropoietin stimulating agent, and the Aranesp was discontinued. He continued low-dose prednisone. He underwent repeat bone marrow aspiration/biopsy on 06/29/2016. Cellularity was increased, estimated at 75-80%. There was mild megakaryocyte dyspoiesis. There was no significant dyserythropoiesis noted. Blasts were reported at 0%. There was no storage iron identified. The FISH panel for MDS was unrevealing and the standard chromosome analysis was normal. The findings were nondiagnostic other than the apparent iron deficiency. He was given parenteral iron replacement with a single infusion of Injectafer on 08/17/2016. There was no observable response, as his follow-up CBC on 09/09/2016 showed his hemoglobin down to 7.7 g compared to 8.7 g on 08/04/2016. At that point he did receive a transfusion of 1 unit of packed red blood cells. As of December 2016 his hemoglobin level had decreased to under 9 g, and he also developed mild leukopenia. He underwent repeat bone marrow aspiration/biopsy on 03/05/2017. The marrow was hypercellular at 90-95%. There was evidence of megakaryocyte disc dyspoiesis. Erythroid precursors were noted to be decreased, and there was limited dyserythropoiesis. Iron stores were 1+. Ring sideroblasts were present, accounting for 20% of nucleated red cells. Blasts were estimated at 3%. The FISH panel for MDS was unrevealing, and the standard chromosome analysis was normal. Overall, the findings were felt to be consistent with myelodysplastic syndrome (MDS with ring sideroblasts). During subsequent follow-up on low-dose prednisone he continued to have moderately severe anemia, but above transfusion threshold. However, on 05/31/2017 his hemoglobin had dropped to 7.3 g. He was significantly more fatigued and short of breath. He was given a transfusion of 2 U of packed red blood cells on 06/01/2017. He then began a trial of therapy with Revlimid 10 mg daily. During subsequent follow-up he continued to have moderately severe anemia. He required transfusion again on 07/21/2017. He then developed severe neutropenia, ANC 600. As of 08/23/2017 the Revlimid was put on hold. His subsequent blood counts continued to show anemia and neutropenia. He required further transfusions on 08/31/2017 and on 09/27/2017. During this time, he underwent placement of a Watchman SILVIA occlusion device. He had no complications with the procedure. He initially continued anticoagulation with apixaban 2.5 mg twice a day together with clopidogrel 75 mg daily, but it was later changed to just aspirin. He also has continued immunosuppressive therapy with hydroxychloroquine 200 mg twice a day and prednisone 5 mg daily. He remained transfusion dependent. As of February 2018 his ferritin level had increased to 1153 ng/mL, and he then started treatment with deferasirox. It was stopped in September 2018 after his ferritin level had dropped to less than 500 ng/mL. On 11/27/2018 he was admitted to the hospital after falling at home and sustaining a left hip fracture. He apparently developed an infection postoperatively, but eventually was transferred to rehabilitation on 12/20/2018 and he was able to return home on 01/05/2019. During that time he was taken off hydroxychloroquine. He continued on low-dose prednisone at 5 mg daily. His other medical illnesses include hypertension, dyslipidemia, coronary artery disease, congestive heart failure, hypothyroidism, and systemic lupus. He has a history of prior stroke. He has undergone coronary artery bypass surgery. He has had a previous cholecystectomy, and he has undergone removal of colonic polyps. He underwent right inguinal hernia repair at [facility] in March 2016. He has history of smoking 1-1/2 packs of cigarettes daily for 60 years, but he quit smoking approximately 2006. INTERIM HISTORY: As of August 2019 he had been scheduled to begin a trial of therapy with luspatercept, but he opted to put off treatment due to the coronavirus pandemic. In September he underwent vascular procedures on both legs due to his chronic venous insufficiency. His repeat CBC on 10/22/2019 showed further decline in his hemoglobin to 7.3 g, but at that time he declined transfusion. On 11/18/2019 he returned for his initial injection of luspatercept. At that time his hemoglobin was still low at 8.1 g, and he did opt to receive 2 units PRBC. He received a second injection of luspatercept on 12/09/2019. His hemoglobin at that point was up to 10.3 g. He then continued with the luspatercept at 3-week intervals with his hemoglobin level remaining basically stable. He is seen for a follow-up visit. He has been feeling pretty good generally, though he says he likes to lay around a lot. He is able to do some light work. ECOG score is 1. His appetite is good. He has no fever or night sweats. He is recently had problems with his left eye, and he is going to be seeing his sales product specialist. He has shortness of breath with activity. He does not complain of cough and he has not been having chest pain. He currently he has no GI complaints. He says his bowel function is improving. He has chronic bladder dysfunction, which is the same. He has no significant joint or bone pain. He has no focal neurologic symptoms. Medications: Carvedilol 1 (6.25 mg) Tablet Oral b.i.d., Combigan 1 drop(s) (of 0.2-0.5 %) Solution Ophthalmic daily, Furosemide (40 mg) Tablet Oral Take as Directed, Latanoprost 1 Drop(s) (of 0.005 %) Solution Ophthalmic daily, Luspatercept-aamt (88 mg) Subcutaneous q 3 weeks, Magnesium 1 (400 mg) Tablet Oral daily, Nitroglycerin 1 (0.4 mg) Tablet, sublingual Sublingual PRN, Ocuvite 1 Tablet Oral daily, Plavix 1 (75 mg) Tablet Oral daily, Potassium Chloride ER 1 (10 meq) Capsule, controlled release Oral daily, PredniSONE 1 Tablet (of 5 mg) Oral daily, Simvastatin 1 (20 mg) Tablet Oral daily, Vitamin B12 1 Tablet (of 5000 mcg) Oral daily Allergies: No Known Allergies. Review of Systems: Constitutional - His energy varies day to day. He has been resting more lately. His appetite is good and his weight is up a few pounds from last visit. No fever, night sweats, or hot flashes. ECOG score is 1, Eyes - He reports visual changes, but his eye looks better. He reports he will be calling to see his eye doctor today, ENMT - No sinus congestion/drainage. No mouth sores. No sore throat or difficulty swallowing, Hematologic/Lymphatic - He bruises easily, Respiratory - He gets short of breath with activity. No cough. No pleuritic pain or hemoptysis, Cardiovascular - No angina pain. No palpitations. He lower extremity edema is much improved, Gastrointestinal - No nausea or vomiting. No heartburn or acid reflux. No diarrhea. He is having constipation. No blood in the stool or black stools, Genitourinary (M) - No dysuria or hematuria. He has urinary frequency with urgency, and he also has hesitancy, Musculoskeletal - No joint or bone pain, Neurologic - No headache or dizziness. No numbness or tingling. No other focal neurologic symptoms, Psychiatric - No anxiety or depression. He does not sleep well. Vital Signs: Performed on Feb 10, 2020 10:11 Height - 71.00 in Weight - 179.8 lbs (HIGH) BSA - 2.02 sq.m BMI - 25.08 Temperature - 97.3 F (LOW) Pulse - 81 /min Respiration - 18 /min BP - 143/67 mm(hg) (HIGH) O2 Sat - 93 % (LOW) Pain - 0 Physical Examination: Constitutional - He looks pretty good generally, Eyes - Sclerae nonicteric. His left eye is red, ENMT - No lesions noted in the oral cavity, Hematologic/Lymphatic - No cervical, clavicular, or axillary adenopathy, Respiratory - Lungs sound clear with some decrease in air movement bilaterally, Cardiovascular - Heart rhythm is regular. There is a II/ systolic murmur. There is no gallop or rub noted, Abdomen - Soft. Liver and spleen are not enlarged. There is no abdominal mass or ascites noted and there is no inguinal adenopathy, Extremities - Mild edema. He has chronic purpura, Neurologic - No focal neurologic deficits noted. Lab/Imaging: Test performed on Feb 10, 2020 08:48 LDH (Total) 379 U/L Sodium 141 mmol/L Potassium 4.0 mmol/L Chloride 98 mmol/L CO2 33 mmol/L Anion Gap 14.0 BUN 16 mg/dL Creatinine 0.9 mg/dL Cr Clearance (Est) 77.0100 mL/min Glucose 115 mg/dL Calcium 8.9 mg/dL Osmolality - Calculated 289 mOsm/kg Protein, Total 6.7 g/dL Albumin 4.0 g/dL Globulin 2.7 g/dL Bilirubin, Total 0.7 mg/dL ALT (SGPT) 18 U/L AST (SGOT) 22 U/L Alkaline Phosphatase 101 IU/L WBC 3.7 10 3/uL RBC 2.57 10 6/uL HGB 10.4 g/dL HCT 34.0 % MCV 132.3 fL MCH 40.5 pg MCHC 30.6 g/dL RDW 18.2 % Platelet Count 369 10 3/cmm MPV 10.9 fL Neutrophils 1.20 10 3/uL Lymphocytes 1.2 10 3/uL Monocytes 1.1 10 3/uL Eosinophils 0.1 10 3/uL Basophils 0.1 10 3/uL Neutrophil % 32.8 % Lymphocyte % 32.2 % Monocyte % 29.0 % Eosinophil % 1.4 % Basophils % 1.6 % NRBC % 0 % Impression: 1. 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 2. He has had evidence of underlying autoimmune disease, including systemic lupus erythematosus. 3. His anemia has shown response to immunosuppressive therapy, which has included steroid therapy and rituximab. He appeared, though, to have failed treatment with cyclosporine. 4. He also had benefit with an erythropoietin stimulating agent. 5. He was hospitalized with non-ST elevation myocardial infarction in November 2015. At that point it was felt that he was not eligible for further treatment with an erythropoietin stimulating agent. His other medical illnesses include: 6. Hypertension. 7. Dyslipidemia. 8. Coronary artery disease. 9. He has history of atrial fibrillation and congestive heart failure. 10. Hypothyroidism. 11. History of prior stroke. He had initially been stable clinically following the myocardial infarction in November 2015, but with some decline in his hemoglobin/hematocrit levels. His repeat bone marrow aspiration/biopsy on 06/29/2016 showed absent storage iron consistent with iron deficiency. The marrow was hypercellular, but there were no other diagnostic findings. I was uncertain of the clinical significance of the absent storage iron, as he had normal transferrin saturation and elevated ferritin. He was given a single infusion of Injectafer on 08/17/2016. There was no observable response. He required transfusion again in August 2016. As of December 2016 his hemoglobin had declined under 9 g, and he also developed mild leukopenia. His repeat bone marrow aspiration/biopsy on 03/05/2017 was consistent with myelodysplastic syndrome (MDS with ring sideroblasts). His IPSS-R score calculated to 3.0, low risk. During subsequent followup his hemoglobin level remained stable in the range of 8-9 g, above transfusion threshold. As of 05/31/2017 his hemoglobin had dropped to 7.3 g. He was transfused 2 U of packed red blood cells. He then started a trial of therapy with Revlimid 10 mg daily. He required another transfusion of PRBC within 1 month after starting the Revlimid. During subsequent follow-up, he continued to have moderately severe anemia. He then developed severe neutropenia, and as of his follow-up visit on 08/23/2017 the Revlimid was put on hold. During subsequent follow-up he remained transfusion dependent, but he did have recovery of his neutrophil count. As of February 2018 he began chelation therapy with deferasirox, as his ferritin had become significantly elevated. It was stopped in September 2018 with the ferritin level had dropped below 500 ng/mL. On 11/27/2018 he was admitted to the hospital after falling at home and sustaining left hip fracture. He had a gradual recovery following that surgery, though he has since then had worsened bladder function with difficulty voiding. He has chronic edema and he required treatment at wound care clinic for venous stasis ulcers on both legs. In September 2019 he underwent a vascular procedure to both legs for the venous insufficiency. He had significant improvement in his edema following that procedure. He continued, though, to have moderately severe anemia, and on 11/18/2019 he began a trial of therapy with luspatercept at 1 mg/kg by subcutaneous injection every 3 weeks. He initially had some constipation with the luspatercept, but that has since improved, and he is otherwise tolerated it well. He has had a significant increase in his hemoglobin/hematocrit levels since he started treatment, and there has been improvement in his clinical status. Plan: He will continue treatment with luspatercept at the 1 mg/kg by subcutaneous injection. He will return for treatment every 3 weeks. Assuming his hemoglobin remains stable, I will just see him again in 3 month. Signed By: Craig Grayson M.D. <<Signature on File>>
== END 2020-02-10 05:47 | disposition home or self-care (01) ==
PROVIDERS: PCP Family Medicine; Visit Provider Internal Medicine Medical Oncology
DX: D46.1 Refractory anemia with ring sideroblasts (principal); D60.0 Chronic acquired pure red cell aplasia; M32.9 Systemic lupus erythematosus, unspecified; I25.2 Old myocardial infarction; E78.5 Hyperlipidemia, unspecified; I25.10 Atherosclerotic heart disease of native coronary artery without angina pectoris; I11.0 Hypertensive heart disease with heart failure; I48.91 Unspecified atrial fibrillation; I50.9 Heart failure, unspecified; E03.9 Hypothyroidism, unspecified; Z79.899 Other long term (current) drug therapy; Z86.73 Personal history of transient ischemic attack (TIA), and cerebral infarction without residual deficits
CPT/HCPCS: 36415; 80053; 83615; 85025; 96372; 99214; J0896

== ENCOUNTER → 2020-02-28 09:07 | Outpatient (BNVA) | payer MEDICARE, SELFPAY | PROVIDERS: PCP Family Medicine; Visit Provider Internal Medicine Medical Oncology | DX: D46.1 Refractory anemia with ring sideroblasts (principal) | CPT/HCPCS: 85025 ==

== ENCOUNTER 2020-03-02 06:10 | Outpatient (CLI) | payer MEDICARE, SELFPAY | END 2020-03-02 06:11 | disposition home or self-care (01) | LOC: ONCMED 06:12 | PROVIDERS: PCP Family Medicine; Visit Provider Internal Medicine Medical Oncology | DX: D46.1 Refractory anemia with ring sideroblasts (principal); D50.9 Iron deficiency anemia, unspecified; D60.0 Chronic acquired pure red cell aplasia; D46.9 Myelodysplastic syndrome, unspecified; Z99.81 Dependence on supplemental oxygen | CPT/HCPCS: 96372; J0896 ==

== ENCOUNTER → 2020-03-20 08:35 | Outpatient (BNVA) | payer MEDICARE, SELFPAY | PROVIDERS: PCP Family Medicine; Visit Provider Internal Medicine Medical Oncology | DX: D50.8 Other iron deficiency anemias (principal) | CPT/HCPCS: 85025 ==

== ENCOUNTER 2020-03-23 06:25 | Outpatient (CLI) | payer MEDICARE, SELFPAY | END 2020-03-23 06:26 | disposition home or self-care (01) | LOC: ONCMED 06:26 | PROVIDERS: PCP Family Medicine; Visit Provider Internal Medicine Medical Oncology | DX: D46.1 Refractory anemia with ring sideroblasts (principal); D60.0 Chronic acquired pure red cell aplasia | CPT/HCPCS: 96372; J0896 ==

== ENCOUNTER → 2020-04-10 09:04 | Outpatient (BNVA) | payer MEDICARE, SELFPAY | PROVIDERS: PCP Family Medicine; Visit Provider Internal Medicine Medical Oncology | DX: Z94.2 Lung transplant status (principal) | CPT/HCPCS: 85025 ==

== ENCOUNTER 2020-04-13 06:06 | Outpatient (CLI) | payer MEDICARE, SELFPAY ==
[2020-04-14 10:09] LABS: Basophils # 0.1 10^3/uL (0.0-0.1); Basophils % 1.6 %; Eosinophils # 0.1 10^3/uL (0.0-0.8); Hemoglobin 9.8 g/dL (11.7-16.6); Lymphocytes % 20.6 %; Mean Corpuscular HGB Conc 30.6 g/dL (30.0-36.0); Mean Corpuscular Hemoglobin 40.5 pg (28.0-34.0); Mean Corpuscular Volume 132.2 fL (80-94); Mean Platelet Volume 10.9 fL (7.4-10.4); Monocytes # 1.3 10^3/uL (0.2-0.9); Monocytes % 26.9 %; Neutrophils # 2.31 10^3/uL (1.8-7.7); Neutrophils % 46.3 %; Nucleated Red Blood Cells % 0 %; Platelet Count 393 10^3/cmm (130-400); Red Blood Count 2.42 10^6/uL (4.1-5.3); Red Cell Distribution Width 15.8 % (12.1-15.1)
[2020-04-14 10:20] LABS: Alanine Aminotransferase 18 U/L (0-41); Albumin Level 4.1 g/dL (3.5-5.2); Alkaline Phosphatase 95 IU/L (40-130); Anion Gap 14.7 (5-19); Aspartate Amino Transferase 18 U/L (0-40); Blood Urea Nitrogen 24 mg/dL (8-23); Calcium 8.8 mg/dL (8.5-10.5); Carbon Dioxide 32 mmol/L (22-29); Chloride 102 mmol/L (98-107); Globulin 2.3 g/dL (1.3-4.6); Glucose 135 mg/dL (65-115); Osmolality Calculated 304 mOsm/kg (285-295); Potassium 4.7 mmol/L (3.5-5.1); Sodium 144 mmol/L (136-145); Total Bilirubin 0.8 mg/dL (0.15-1.2); Total Protein 6.4 g/dL (6.6-8.7)
[2020-04-14 10:33] LABS: D Dimer 0.86 ug/mIFEU (0-0.59)
== END 2020-04-13 06:07 | disposition home or self-care (01) ==
LOC: ONCMED 06:08
PROVIDERS: Nurse Practitioner; PCP Family Medicine; Visit Provider Internal Medicine Medical Oncology
DX: D46.1 Refractory anemia with ring sideroblasts (principal); D46.9 Myelodysplastic syndrome, unspecified; D50.9 Iron deficiency anemia, unspecified; D60.0 Chronic acquired pure red cell aplasia
CPT/HCPCS: 96372; J0896

== ENCOUNTER 2020-04-14 09:12 | Outpatient (CLI) | payer MEDICARE, SELFPAY | END 2020-04-14 09:13 | disposition home or self-care (01) | PROVIDERS: PCP Family Medicine; Visit Provider Nurse Practitioner | DX: D46.1 Refractory anemia with ring sideroblasts (principal); D46.9 Myelodysplastic syndrome, unspecified; D50.8 Other iron deficiency anemias; D60.0 Chronic acquired pure red cell aplasia | CPT/HCPCS: 36415 ==

== ENCOUNTER 2020-04-14 11:54 | Emergency (ER) | payer MEDICARE, SELFPAY ==
[2020-04-14 12:04] VITALS: BP 129/103; PULSE 78; RESP 18; TEMP 36.8; O2SAT 98; BMI 25.7
--- NOTE | 2020-04-14 12:11 | XR_ITS ---
WS: [id number] Exam: XR chest 1V portable [id number] Date/Time of Exam: 04/14/2020 12:11 PM Reason For Exam: dyspnea/cough Comparison 11/13/2013. The heart is enlarged. There is pulmonary vascular congestion suggesting low-grade CHF. Signs of prev ious CABG surgery. A permanent cardiac pacer superimposes the left chest. The lungs are fully expande d. The mediastinum and regional bony elements are unremarkable. XR/XR chest 1V portable [id number] IMPRESSION: 1. Cardiac enlargement with pulmonary vascular congestion suggesting low-grade CHF.
--- NOTE | 2020-04-14 12:22 | ED_ITS ---
HPI - SOB/Dyspnea General: Chief Complaint: Shortness of Breath/Dyspnea Stated Complaint: Possible PE, SOB Time Seen by Provider: 04/14/20 12:10 History of Present Illness: HPI Narrative: 84-year-old male comes in complaining of shortness of breath. He has some chronic shortness of breath which he relates to his myelodysplastic syndrome but he says been getting worse just recently. Is not had any myalgias any fever sweats or chills he has not had a productive cough he has a certain level of chronic orthopnea but that has not really changed at all recently denies chest pain or abdominal pain. 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) Onset (ago): day(s) Timing: constant Severity: moderate Exacerbating factors: exertion Relieving factors: rest Associated symptoms: Reports orthopnea; Deny abdominal pain, chest congestion, chest pain, cough, diaphoresis, dizziness, extremity pain, fever(s), hemoptysis, lightheadedness, myalgias, nausea, palpitations, paresthesias, polydipsia, polyuria, rash, sense of impending doom, syncope or vomiting Treatment prior to arrival: none Review of Systems Const: Denies: fever(s) or diaphoresis ENMT: Denies: throat pain, ear or mastoid pain, nasal discharge or nasal congestion Card: Reports: orthopnea; Denies: chest pain, palpitations, lightheadedness or syncope Resp: Denies: hemoptysis or chest congestion GI: Denies: abdominal pain, nausea or vomiting : Denies: flank pain, dysuria, urinary frequency or urinary urgency Musc: Denies: extremity pain Skin/Breast: Denies: rash or pruritus Neuro: Denies: dizziness Endo: Denies: polyuria or polydipsia PFS ED PFSH: Medical History (Updated 04/14/20 @ 15:34 by Mahesh Hood DO) Detrusor dysfunction Redundant prepuce and phimosis Error. Slow urinary stream Surgical History H/O circumcision Error H/O hernia repair History of transurethral resection of prostate Family History Mother , 89 CAD (coronary artery disease) Father , 88 CAD (coronary artery disease) Social History Smoking and tobacco status: never smoked Alcohol intake: never Marital status: Current occupational status: retired Current gender identity: Male Physical Exam Const: COMMON NORMALS: no acute distress GENERAL APPEARANCE: cooperative and comfortable ORIENTATION/CONSCIOUSNESS: Yes awake, Yes oriented to person, Yes oriented to place and Yes oriented to time HENMT: COMMON NORMALS: normocephalic, atraumatic and hearing grossly normal bilaterally HEAD & SCALP: normocephalic and atraumatic Eye: COMMON NORMALS: Equal, round and reactive pupils present, EOMs intact bilaterally, conjunctivae normal and no scleral icterus CONJUNCTIVA: Yes conjunctivae normal PUPIL: Yes Equal, round and reactive pupils present Neck/C-Spine: COMMON NORMALS: full ROM, no lymphadenopathy, supple and no JVD Lymph: LYMPHATIC: no lymphadenopathy noted and no lymphedema noted Resp: COMMON NORMALS: normal respiratory effort, No retractions, No use of accessory muscles and clear to auscultation bilaterally AUSCULTATION: clear to auscultation bilaterally Cardio: COMMON NORMALS: no JVD, regular rate, regular rhythm and No murmurs present (Cardio) RATE: regular rate RHYTHM: regular rhythm GI: COMMON NORMALS: Soft to palpation and No hepatosplenomegaly present AUSCULTATION: Yes normoactive bowel sounds PALPATION: Yes Soft to palpation, No Tenderness to palpation present (GI), No Guarding due to palpation present (GI) and Yes No hepatosplenomegaly present Extremity: COMMON NORMALS: normal to inspection, capillary refill normal, no clubbing, cyanosis or edema, no calf tenderness and no pedal edema Neuro: SENSORIUM/ORIENTATION: Yes oriented to person, Yes oriented to place and Yes oriented to time Skin: COMMON NORMALS: no rashes or lesions noted GENERAL SKIN EXAM: no rashes or lesions noted Course Vital Signs: Vital signs: Vital Signs Temperature 98.2 F 04/14/20 12:04 Pulse Rate 78 04/14/20 12:04 Respiratory Rate 18 04/14/20 12:04 Blood Pressure 129/103 04/14/20 12:04 Pulse Oximetry 98 04/14/20 12:04 MDM - SOB/Dyspnea MDM Narrative: Medical decision making narrative: Chest x-ray shows increased vascular congestion. Patient is given dose of IV [id number] discharge home on 60 mg daily follow-up with primary care in the next 3 to 4 days return if has further problems. Lab Data: Attestation: I reviewed the patient's lab results. Labs: Lab Results 04/14/20 04/14/20 04/14/20 Range/Units 12:16 12:16 12:16 WBC 5.7 (4.0-10.0) 10^3/ uL RBC 2.57 L (4.1-5.3) 10^6/u L Hgb 10.6 L (11.7-16.6) g/dL Hct 34.5 L (42.0-52.0) % MCV 134.2 H (80-94) fL MCH 41.2 H (28.0-34.0) pg MCHC 30.7 (30.0-36.0) g/dL RDW 16.1 H (12.1-15.1) % Plt Count 398 (130-400) 10^3/c mm MPV 11.2 H (7.4-10.4) fL Neut % (Auto) 42.6 % Lymph % (Auto) 29.6 % [place] % (Auto) 21.4 % Eos % (Auto) 0.7 % Baso % (Auto) 1.7 % Neut # (Auto) 2.44 (1.8-7.7) 10^3/u L Lymph # (Auto) 1.7 (0.8-4.8) 10^3/u L [place] # (Auto) 1.2 H (0.2-0.9) 10^3/u L Eos # (Auto) 0.0 (0.0-0.8) 10^3/u L Baso # (Auto) 0.1 (0.0-0.1) 10^3/u L Nucleated RBC % (a uto) 0 % Nucleated RBCs # 0.0 /100WBC Sodium Cancelled Potassium Cancelled Chloride Cancelled Carbon Dioxide Cancelled Anion Gap Cancelled BUN Cancelled Creatinine Cancelled GFR Calculation Cancelled Glucose Cancelled Calculated Osmolal ity Cancelled Lactic Acid 1.9 (0.5-2.2) mmol/L Calcium Cancelled Total Bilirubin Cancelled AST Cancelled ALT Cancelled Alkaline Phosphata se Cancelled Troponin T Baselin e Troponin T 120 Min [place] (0-15) ng/L [place] Troponin T (0-10) ABS# Total Protein Cancelled Albumin Cancelled Globulin Cancelled Urine Color (Yellow) Urine Appearance (CLEAR) Urine pH (5-7) Ur Specific Gravit y (1.005-1.030) Urine Protein (Negative) Urine Glucose (UA) (Normal) Urine Ketones (Negative) Urine Blood (Negative) Urine Nitrate (Negative) Urine Bilirubin (Negative) Urine Urobilinogen (Negative) mg/dL Ur Leukocyte [place] a[place] (Negative) 04/14/20 04/14/20 04/14/20 Range/Units 12:16 12:41 12:41 WBC (4.0-10.0) 10^3/ uL RBC (4.1-5.3) 10^6/u L Hgb (11.7-16.6) g/dL Hct (42.0-52.0) % MCV (80-94) fL MCH (28.0-34.0) pg MCHC (30.0-36.0) g/dL RDW (12.1-15.1) % Plt Count (130-400) 10^3/c mm MPV (7.4-10.4) fL Neut % (Auto) % Lymph % (Auto) % [place] % (Auto) % Eos % (Auto) % Baso % (Auto) % Neut # (Auto) (1.8-7.7) 10^3/u L Lymph # (Auto) (0.8-4.8) 10^3/u L [place] # (Auto) (0.2-0.9) 10^3/u L Eos # (Auto) (0.0-0.8) 10^3/u L Baso # (Auto) (0.0-0.1) 10^3/u L Nucleated RBC % (a uto) % Nucleated RBCs # /100WBC Sodium 142 Potassium 4.9 Chloride 100 Carbon Dioxide 33 H Anion Gap 13.9 BUN 23 Creatinine 1.0 GFR Calculation Not Reportable Glucose 138 H Calculated Osmolal ity 300 H Lactic Acid (0.5-2.2) mmol/L Calcium 8.9 Total Bilirubin 0.8 AST 19 ALT 18 Alkaline Phosphata se 101 Troponin T Baselin e Cancelled 19 H Troponin T 120 Min [place] (0-15) ng/L Delta Troponin T (0-10) ABS# Total Protein 6.3 L Albumin 4.1 Globulin 2.2 Urine Color (Yellow) Urine Appearance (CLEAR) Urine pH (5-7) Ur Specific Gravit y (1.005-1.030) Urine Protein (Negative) Urine Glucose (UA) (Normal) Urine Ketones (Negative) Urine Blood (Negative) Urine Nitrate (Negative) Urine Bilirubin (Negative) Urine Urobilinogen (Negative) mg/dL Ur Leukocyte [place] ase (Negative) 04/14/20 04/14/20 Range/Units 14:43 14:58 WBC (4.0-10.0) 10^3/ uL RBC (4.1-5.3) 10^6/u L Hgb (11.7-16.6) g/dL Hct (42.0-52.0) % MCV (80-94) fL MCH (28.0-34.0) pg MCHC (30.0-36.0) g/dL RDW (12.1-15.1) % Plt Count (130-400) 10^3/c mm MPV (7.4-10.4) fL Neut % (Auto) % Lymph % (Auto) % [place] % (Auto) % Eos % (Auto) % Baso % (Auto) % Neut # (Auto) (1.8-7.7) 10^3/u L Lymph # (Auto) (0.8-4.8) 10^3/u L [place] # (Auto) (0.2-0.9) 10^3/u L Eos # (Auto) (0.0-0.8) 10^3/u L Baso # (Auto) (0.0-0.1) 10^3/u L Nucleated RBC % (a uto) % Nucleated RBCs # /100WBC Sodium Potassium Chloride Carbon Dioxide Anion Gap BUN Creatinine GFR Calculation Glucose Calculated Osmolal ity Lactic Acid (0.5-2.2) mmol/L Calcium Total Bilirubin AST ALT Alkaline Phosphata se Troponin T Baselin e Troponin T 120 Min [place] 18.77 H (0-15) ng/L [place] Troponin T -0.23 L (0-10) ABS# Total Protein Albumin Globulin Urine Color Yellow (Yellow) Urine Appearance Clear (CLEAR) Urine pH 6 (5-7) Ur Specific Gravit y 1.010 (1.005-1.030) Urine Protein Neg (Negative) Urine Glucose (UA) Norm (Normal) Urine Ketones Negative (Negative) Urine Blood Neg (Negative) Urine Nitrate Negative (Negative) Urine Bilirubin Neg (Negative) Urine Urobilinogen Neg (Negative) mg/dL Ur Leukocyte [place] Negative (Negative) Discharge Plan Discharge Patient Disposition: Home Clinical Impression: Congestive heart failure Condition: Stable Prescriptions: Changed furosemide 40 mg tablet 60 mg PO DAILY Qty: 0 RF: 0 No Action [place] 0.2-0.5 % drops 1 drop ophthalmic (eye) BID RF: 0 latanoprost (PF) 0.005 % drops 1 drop ophthalmic (eye) BID RF: 0 lidocaine HCl 2 % jelly 1 applic INTRA-URET ONCE Qty: 1 RF: 0 carvedilol 6.25 mg tablet 6.25 mg PO BID RF: 0 mecobalamin (vitamin B12) 5,000 mcg tablet,disintegrating 5,000 mcg PO DAILY RF: 0 clopidogrel [Plavix] 75 mg tablet 75 mg PO DAILY RF: 0 simvastatin 20 mg tablet 20 mg PO DAILY RF: 0 potassium chloride 10 mEq tablet,ER particles/crystals 10 meq PO DAILY RF: 0 magnesium oxide 400 mg magnesium tablet 400 mg PO DAILY RF: 0 ICaps AREDS [id number] onbl-ac-etmg capsule 1 cap PO BID RF: 0 folic acid 0.8 mg capsule 0.8 mg PO DAILY RF: 0 nitroglycerin 0.4 mg tablet, sublingual 0.4 mg SUBLINGUAL Q5M PRN (Reason: CHEST PAINS) RF: 0 prednisone 5 mg tablet 5 mg PO DAILY RF: 0 Discharge Orders: Discharge Order (Routine); Ordered 04/14/20 Ordered By: Mahesh Hood Referrals: Mark Nolen MD [Primary Care Provider] - Discharge Diet: Usual diet Discharge Activity: Increase activity as tolerated Activity Restrictions/Additional Instructions: Increase your Lasix to 60 mg daily. Follow-up with your primary care doctor within the next 3 days. Coding Level of Care Code ED Wet Milling Wheel Operator for Chg Fwd Exam Comprehensive
[2020-04-14 12:28] LABS: Basophils # 0.1 10^3/uL (0.0-0.1); Basophils % 1.7 %; Eosinophils % 0.7 %; Hematocrit 34.5 % (42.0-52.0); Hemoglobin 10.6 g/dL (11.7-16.6); Lymphocytes # 1.7 10^3/uL (0.8-4.8); Lymphocytes % 29.6 %; Mean Corpuscular HGB Conc 30.7 g/dL (30.0-36.0); Mean Corpuscular Hemoglobin 41.2 pg (28.0-34.0); Mean Corpuscular Volume 134.2 fL (80-94); Mean Platelet Volume 11.2 fL (7.4-10.4); Monocytes # 1.2 10^3/uL (0.2-0.9); Monocytes % 21.4 %; Neutrophils # 2.44 10^3/uL (1.8-7.7); Neutrophils % 42.6 %; Nucleated Red Blood Cells % 0 %; Platelet Count 398 10^3/cmm (130-400); Red Blood Count 2.57 10^6/uL (4.1-5.3); Red Cell Distribution Width 16.1 % (12.1-15.1); White Blood Count 5.7 10^3/uL (4.0-10.0)
[2020-04-14] MEDS: sodium chloride 0.9% 1,000 ML 999 ML IV (12:43)
[2020-04-14 12:44] LABS: Lactic Sepsis W/Reflex 1.9 mmol/L (0.5-2.2)
[2020-04-14 12:45] VITALS: BP 175/113; PULSE 80; RESP 16; O2SAT 98
[2020-04-14 13:07] LABS: Alanine Aminotransferase 18 U/L (0-41); Albumin Level 4.1 g/dL (3.5-5.2); Alkaline Phosphatase 101 IU/L (40-130); Anion Gap 13.9 (5-19); Aspartate Amino Transferase 19 U/L (0-40); Blood Urea Nitrogen 23 mg/dL (8-23); Calcium 8.9 mg/dL (8.5-10.5); Carbon Dioxide 33 mmol/L (22-29); Chloride 100 mmol/L (98-107); Globulin 2.2 g/dL (1.3-4.6); Glucose 138 mg/dL (65-115); Osmolality Calculated 300 mOsm/kg (285-295); Potassium 4.9 mmol/L (3.5-5.1); Sodium 142 mmol/L (136-145); Total Bilirubin 0.8 mg/dL (0.15-1.2); Total Protein 6.3 g/dL (6.6-8.7)
[2020-04-14 13:09] LABS: Troponin(5th) Baseline 19 ng/L (0-15)
[2020-04-14 13:30] VITALS: BP 170/108; PULSE 80; RESP 18; O2SAT 99
--- NOTE | 2020-04-14 14:05 | PC.NURSE ---
Read and agree with assessment.
--- NOTE | 2020-04-14 14:12 | ECG_ITS ---
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 Measurements Intervals [place] Rate: 80 P: [place]: -1 QRS: -82 QRSD: 202 T: 80 QT: 485 QTc: 560 Interpretive Statements ELECTRONIC VENTRICULAR PACEMAKER ABNORMAL RHYTHM ECG Compared to ECG 04/14/2020 12:06:14 No significant changes Electronically Signed On 04-15-2020 8:05:26 COMMUNICATIONS PROFESSOR by Charis Larsen M.D. [id number]
[2020-04-14 14:39] VITALS: BP 168/98; PULSE 79; RESP 18; O2SAT 99
[2020-04-14 15:07] LABS: Add Urine Microscopic? NO
[2020-04-14 15:09] LABS: Blood Urine Neg (Negative); Glucose Urine UA Norm (Normal); Ketones Urine Negative (Negative); Nitrate Urine Negative (Negative); Protein Urine Neg (Negative); Urine Appearance Clear (CLEAR); Urine Color Yellow (Yellow); pH Urine 6 (5-7)
[2020-04-14 15:10] LABS: Bilirubin Urine Neg (Negative); Leukocyte Esterase Urine Negative (Negative); Urobilinogen Urine Neg (Negative)
[2020-04-14 15:15] LABS: Troponin 5 2HR 18.77 ng/L (0-15)
[2020-04-14 15:16] LABS: Troponin 5 2HR Delta -0.23 ABS# (0-10)
[2020-04-14 15:49] VITALS: BP 173/89; PULSE 80; RESP 18; O2SAT 95
--- NOTE | 2020-04-14 18:12 | ECG_ITS ---
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 Measurements Intervals [place] Rate: 80 P: [place]: -1 QRS: -66 QRSD: 190 T: 129 QT: 465 QTc: 537 Interpretive Statements ELECTRONIC VENTRICULAR PACEMAKER ABNORMAL RHYTHM ECG Compared to ECG 09/09/2016 14:22:06 No significant changes Electronically Signed On 04-15-2020 8:05:37 MID[employer]CHO[employer] PE TEACHER by Charis Larsen M.D. [id number]
--- NOTE | 2020-04-15 14:36 | DCPLANNER ---
manager education had message to schedule an outpatient echo cardiogram for patient. manager education faxed order to centralized scheduling, will call for appointment information.
--- NOTE | 2020-04-22 10:03 | DCPLANNER ---
Centralized scheduling called patient to schedule an outpatient echo for patient, appointment was cancelled due to patient already having an echo completed that was ordered by Dr. Howe.
== END 2020-04-14 15:49 | disposition home or self-care (01) ==
PROVIDERS: Emergency Provider Family Medicine; PCP Family Medicine
DX: I50.9 Heart failure, unspecified (principal); Z79.02 Long term (current) use of antithrombotics/antiplatelets
CPT/HCPCS: 12345; 71045; 80053; 81003; 83605; 84484; 85025; 85378; 93005; 96360; 99282; 99283; J7030

== ENCOUNTER → 2020-05-01 09:45 | Outpatient (BNVA) | payer MEDICARE, SELFPAY | PROVIDERS: PCP Family Medicine; Visit Provider Internal Medicine Medical Oncology | DX: D46.1 Refractory anemia with ring sideroblasts (principal) | CPT/HCPCS: 80053; 83615; 85025 ==

== ENCOUNTER 2020-05-04 05:50 | Outpatient (CLI) | payer MEDICARE, SELFPAY ==
--- NOTE | 2020-05-04 19:00 | ONC FU_ITS ---
Dr. Grayson Patient Follow-Up Note Patient: Mike Sylvester Unit #: [id number]: [id number] Dicatated By: Craig Grayson M.D.Date of Visit:May 04, 2020 Onc Med Follow-up/Prog Note Chief Complaint: Myelodysplastic syndrome. 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 He has had long-standing anemia, refractory to erythropoietin stimulating agents. He was first seen here by Dr. Smith on 06/24/2011. 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 He had abundant proliferation of granulocytes and megakaryocytes with mild dyspoiesis. Flow cytometry, cytogenetics, FISH panel for MDS and reticulin stains were unrevealing. Flow cytometry for PNH was negative, and JAK2 and BCR/abl studies were unrevealing. He was diagnosed with systemic lupus erythematosus, and established care with rheumatology. His further workup revealed positive SLE serology, with positive antibodies for SSA, SSB, SALESPERSON WIGS, and scleroderma. Complement levels C3, C4 were reduced. He responded to high dose prednisone, eventually tapered off in September of 2011 with hemoglobin recovered to 10-11 g/dL and transfusion independent. He was doing well until December of 2011, when he presented with recurrent anemia with hemoglobin 8.3 g/dL, and symptomatic CHF. At that time prednisone was restarted and tapered but also cyclosporin 100 mg by mouth 3 times a day was added. His anemia remained stable between 9-10 g/dL, and he was tolerating cyclosporin well. Since May 2012 he was under the care of Dr. Delgado in [place], as it was closer to home. He was receiving transfusion support about 3-4 times per year, Epogen injections monthly. He continued on cyclosporin at 100 mg three times a day. He ran out of methimazole and did not follow up with his leather stretcher. Since July of 2013 had been receiving Epogen weekly, as he had more refractory anemia. In interim he required an AICD placement for his ischemic cardiomyopathy in September of 2013. In October 2013, he developed flash pulmonary edema associated with hemoglobin bruce around 7 g/dL. He was seen here again on 11/13/2013. While he remained on therapy with cyclosporin, his repeat bone marrow biopsy on 11/14/2013 was essentially unchanged. He had total of 80% cellularity with some limited dyspoiesis in megakaryocytes. He continued to have only 6% of red cells precursors. Cytogenetics failed to culture metaphase cells. FISH panel for MDS was negative. ESR 52, LDH 385 without hemolysis, and erythropoietin level 251. Thus, it had become clear that he was not responding to cyclosporine therapy. Cyclosporine and Epo injections were stopped to get a better sense of a new baseline. Prednisone 80 mg was restarted on 12/05/2013. Two weeks after steroid therapy his hemoglobin increased from 8.2 g/dL to 9.7 g/dL, indicating positive response, providing further evidence that an underlying immune process was affecting the RBC precursors. CT of the chest on 12/12/2013 showed no evidence of thymoma. He had moderate emphysema, indeterminate mediastinal lymph nodes up to 11 mm, stable left adrenal mass and a mild splenic enlargement. Given evidence of lupus like autoimmune condition, the alternative immunosuppressive therapy with rituximab began on 12/26/2013, as per discussion with Dr. Contreras, at [facility]. He received 4 weekly doses, completed on 01/16/14, and steroids were titrated down faster. Aranesp was restarted. His hemoglobin recovered and remained stable at above 10 g/dL, indicating positive response to rituximab treatment. He had a follow up with Dr Contreras at [facility], clonal evolution by next generation sequencing showed a new clonal mutation, confirming diagnosis of MDS. Second trial of rituximab began on 08/06/14- 08/27/14. Aranesp decreased down to every 2 weeks. The patient received cycle 3 of rituximab therapy from 01/28/15 to 02/18/15. He was doing well without complications. He continued on Aranesp therapy, and his hemoglobin remained stable. On 02/27/15 he was admitted with unstable angina. He required blood transfusion, but was refractory to it. Percutaneous coronary intervention was attempted, but reportedly was not successful. His hemoglobin declined to 8.4 g/dL in July 2015, recovered to 10 g/dL with the trial of steroids once again. His hemoglobin stabilized at 9.8 g/dL, and he completed steroid taper. His therapy was changed to Aranesp every 3 weeks because of the issues with transportation. He had a non-ST elevated myocardial infarction in November 2015, for which he underwent cardiac catheterization on 12/10/2015. He was found to have severe three-vessel disease with occluded grafts. There also was evidence of severe ischemic cardiomyopathy. Apparently it was felt that his disease was not amenable to any intervention. However, in the setting of symptomatic underlying coronary artery disease, he was deemed to be inappropriate for treatment with an erythropoietin stimulating agent, and the Aranesp was discontinued. He continued low-dose prednisone. He underwent repeat bone marrow aspiration/biopsy on 06/29/2016. Cellularity was increased, estimated at 75-80%. There was mild megakaryocyte dyspoiesis. There was no significant dyserythropoiesis noted. Blasts were reported at 0%. There was no storage iron identified. The FISH panel for MDS was unrevealing and the standard chromosome analysis was normal. The findings were nondiagnostic other than the apparent iron deficiency. He was given parenteral iron replacement with a single infusion of Injectafer on 08/17/2016. There was no observable response, as his follow-up CBC on 09/09/2016 showed his hemoglobin down to 7.7 g compared to 8.7 g on 08/04/2016. At that point he did receive a transfusion of 1 unit of packed red blood cells. As of December 2016 his hemoglobin level had decreased to under 9 g, and he also developed mild leukopenia. He underwent repeat bone marrow aspiration/biopsy on 03/05/2017. The marrow was hypercellular at 90-95%. There was evidence of megakaryocyte disc dyspoiesis. Erythroid precursors were noted to be decreased, and there was limited dyserythropoiesis. Iron stores were 1+. Ring sideroblasts were present, accounting for 20% of nucleated red cells. Blasts were estimated at 3%. The FISH panel for MDS was unrevealing, and the standard chromosome analysis was normal. Overall, the findings were felt to be consistent with myelodysplastic syndrome (MDS with ring sideroblasts). During subsequent follow-up on low-dose prednisone he continued to have moderately severe anemia, but above transfusion threshold. However, on 05/31/2017 his hemoglobin had dropped to 7.3 g. He was significantly more fatigued and short of breath. He was given a transfusion of 2 U of packed red blood cells on 06/01/2017. He then began a trial of therapy with Revlimid 10 mg daily. During subsequent follow-up he continued to have moderately severe anemia. He required transfusion again on 07/21/2017. He then developed severe neutropenia, ANC 600. As of 08/23/2017 the Revlimid was put on hold. His subsequent blood counts continued to show anemia and neutropenia. He required further transfusions on 08/31/2017 and on 09/27/2017. During this time, he underwent placement of a Watchman SILVIA occlusion device. He had no complications with the procedure. He initially continued anticoagulation with apixaban 2.5 mg twice a day together with clopidogrel 75 mg daily, but it was later changed to just aspirin. He also has continued immunosuppressive therapy with hydroxychloroquine 200 mg twice a day and prednisone 5 mg daily. He remained transfusion dependent. As of February 2018 his ferritin level had increased to 1153 ng/mL, and he then started treatment with deferasirox. It was stopped in September 2018 after his ferritin level had dropped to less than 500 ng/mL. On 11/27/2018 he was admitted to the hospital after falling at home and sustaining a left hip fracture. He apparently developed an infection postoperatively, but eventually was transferred to rehabilitation on 12/20/2018 and he was able to return home on 01/05/2019. During that time he was taken off hydroxychloroquine. He continued on low-dose prednisone at 5 mg daily. His other medical illnesses include hypertension, dyslipidemia, coronary artery disease, congestive heart failure, hypothyroidism, and systemic lupus. He has a history of prior stroke. He has undergone coronary artery bypass surgery. He has had a previous cholecystectomy, and he has undergone removal of colonic polyps. He underwent right inguinal hernia repair at [facility] in March 2016. He has history of smoking 1-1/2 packs of cigarettes daily for 60 years, but he quit smoking approximately 2006. INTERIM HISTORY: As of August 2019 he had been scheduled to begin a trial of therapy with luspatercept, but he opted to put off treatment due to the coronavirus pandemic. In September he underwent vascular procedures on both legs due to his chronic venous insufficiency. His repeat CBC on 10/22/2019 showed further decline in his hemoglobin to 7.3 g, but at that time he declined transfusion. On 11/18/2019 he returned for his initial injection of luspatercept. At that time his hemoglobin was still low at 8.1 g, and he did opt to receive 2 units PRBC. He received a second injection of luspatercept on 12/09/2019. His hemoglobin at that point was up to 10.3 g. He then continued with the luspatercept at 3-week intervals with his hemoglobin level remaining basically stable. He is seen for a follow-up visit. His energy lately has been quite variable. He has good days and bad days. At times he is able to get quite a bit done at home, but other days he has virtually no activity. His ECOG score is 1. He has good appetite. He has no fever or night sweats. He is complaining of dry mouth. He has shortness of breath with activity. He has not been having chest pain. He was informed that his defibrillator went off. He did have one episode of pain in his neck/shoulder area and another episode of more severe back pain, which he thinks may have been associated with the defibrillator. His Coreg dosage has since then been doubled. He complains that he is having terrible constipation. He has hesitancy with urination and he has a poor urine stream. He is voiding more frequently. He has no other joint or bone pain. He has no focal neurologic symptoms. Medications: Carvedilol 2 Tablet (of 6.25 mg) Oral b.i.d., Combigan 1 drop(s) (of 0.2-0.5 %) Solution Ophthalmic daily, Furosemide 1 Tablet (of 40 mg) Oral daily, Latanoprost 1 Drop(s) (of 0.005 %) Solution Ophthalmic daily, Luspatercept-aamt (88 mg) Subcutaneous q 3 weeks, Magnesium 1 (400 mg) Tablet Oral daily, Nitroglycerin 1 (0.4 mg) Tablet, sublingual Sublingual PRN, Ocuvite 1 Tablet Oral daily, Plavix 1 (75 mg) Tablet Oral daily, Potassium Chloride ER 1 (10 meq) Capsule, controlled release Oral daily, PredniSONE 1 Tablet (of 5 mg) Oral daily, Simvastatin 1 (20 mg) Tablet Oral daily, Vitamin B12 1 Tablet (of 5000 mcg) Oral daily Allergies: No Known Allergies. Review of Systems: Constitutional - His energy level is quite variable. Some days he is able to get quite a bit done and other days he has virtually no activity. He has good appetite. He has no fever or night sweats. ECOG score is 1, ENMT - No sinus congestion/drainage. He has dry mouth. No sore throat or difficulty swallowing, Hematologic/Lymphatic - He bruises easily, Respiratory - He has shortness of breath with activity. No cough. No pleuritic pain or hemoptysis, Cardiovascular - No angina pain. No palpitations, Gastrointestinal - No nausea or vomiting. No heartburn or acid reflux. He has terrible constipation. No blood in the stool or black stools, Genitourinary (M) - He has hesitancy with urination and he has poor urine stream. He has been voiding more frequently. No dysuria or hematuria. No urgency or incontinence, Musculoskeletal - He has had episodes of pain in his neck/shoulder area and in his back, possibly associated with his defibrillator, Integumentary - His skin ulcerations have healed, Neurologic - No headache or dizziness. No numbness or tingling. No other focal neurologic symptoms, Psychiatric - No anxiety or depression. He does not sleep well at night. Vital Signs: Performed on May 04, 2020 10:21 Height - 71.00 in Weight - 183.0 lbs (LOW) BSA - 2.03 sq.m BMI - 25.52 Temperature - 97.2 F (LOW) Pulse - 80 /min Respiration - 24 /min BP - 94/50 mm(hg) O2 Sat - 92 % (LOW) Pain - 0 Physical Examination: Constitutional - He appears somewhat weak generally, Eyes - Sclerae nonicteric. Conjunctivae clear, ENMT - No lesions noted in the oral cavity, Hematologic/Lymphatic - No cervical, clavicular, or axillary adenopathy, Respiratory - Lungs sound clear with some decrease in air movement bilaterally, Cardiovascular - Heart rhythm is regular. There is a II/ systolic murmur. There is no gallop or rub noted, Abdomen - Soft. Liver and spleen are not enlarged. There is no abdominal mass or ascites noted and there is no inguinal adenopathy, Extremities - There is 1+ edema on the right and 2+ on the left. He has chronic purpura, Neurologic - No focal neurologic deficits noted. Lab/Imaging: CBC shows hemoglobin 9.7 g, white blood cell count 4400, and platelet count 476,000. Comprehensive metabolic profile is unremarkable. The LDH level is mildly elevated at 380/225 U/L. Impression: 1. 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 2. He has had evidence of underlying autoimmune disease, including systemic lupus erythematosus. 3. His anemia has shown response to immunosuppressive therapy, which has included steroid therapy and rituximab. He appeared, though, to have failed treatment with cyclosporine. 4. He also had benefit with an erythropoietin stimulating agent. 5. He was hospitalized with non-ST elevation myocardial infarction in November 2015. At that point it was felt that he was not eligible for further treatment with an erythropoietin stimulating agent. His other medical illnesses include: 6. Hypertension. 7. Dyslipidemia. 8. Coronary artery disease. 9. He has history of atrial fibrillation and congestive heart failure. 10. Hypothyroidism. 11. History of prior stroke. He had initially been stable clinically following the myocardial infarction in November 2015, but with some decline in his hemoglobin/hematocrit levels. His repeat bone marrow aspiration/biopsy on 06/29/2016 showed absent storage iron consistent with iron deficiency. The marrow was hypercellular, but there were no other diagnostic findings. I was uncertain of the clinical significance of the absent storage iron, as he had normal transferrin saturation and elevated ferritin. He was given a single infusion of Injectafer on 08/17/2016. There was no observable response. He required transfusion again in August 2016. As of December 2016 his hemoglobin had declined under 9 g, and he also developed mild leukopenia. His repeat bone marrow aspiration/biopsy on 03/05/2017 was consistent with myelodysplastic syndrome (MDS with ring sideroblasts). His IPSS-R score calculated to 3.0, low risk. During subsequent followup his hemoglobin level remained stable in the range of 8-9 g, above transfusion threshold. As of 05/31/2017 his hemoglobin had dropped to 7.3 g. He was transfused 2 U of packed red blood cells. He then started a trial of therapy with Revlimid 10 mg daily. He required another transfusion of PRBC within 1 month after starting the Revlimid. During subsequent follow-up, he continued to have moderately severe anemia. He then developed severe neutropenia, and as of his follow-up visit on 08/23/2017 the Revlimid was put on hold. During subsequent follow-up he remained transfusion dependent, but he did have recovery of his neutrophil count. As of February 2018 he began chelation therapy with deferasirox, as his ferritin had become significantly elevated. It was stopped in September 2018 with the ferritin level had dropped below 500 ng/mL. On 11/27/2018 he was admitted to the hospital after falling at home and sustaining left hip fracture. He had a gradual recovery following that surgery, though he has since then had worsened bladder function with difficulty voiding. He has chronic edema and he required treatment at wound care clinic for venous stasis ulcers on both legs. In September 2019 he underwent a vascular procedure to both legs for the venous insufficiency. He had significant improvement in his edema following that procedure. He continued, though, to have moderately severe anemia, and on 11/18/2019 he began a trial of therapy with luspatercept at 1 mg/kg by subcutaneous injection every 3 weeks. He has had some constipation with the luspatercept and he also complains of dry mouth. He has otherwise tolerated it well. He had a significant increase in his hemoglobin/hematocrit levels with the luspatercept, with his hemoglobin stabilizing in the range of 10 g. He has remained transfusion independent, and he has had improvement in his clinical status. Plan: He will continue treatment with luspatercept at the 1 mg/kg by subcutaneous injection. He will continue blood counts and injections at 3-week intervals. I will see him again in 3 months, or sooner as needed. Signed By: Craig Grayson M.D. <<Signature on File>>
== END 2020-05-04 05:51 | disposition home or self-care (01) ==
LOC: ONCMED 05:52
PROVIDERS: PCP Family Medicine; Visit Provider Internal Medicine Medical Oncology
DX: D46.1 Refractory anemia with ring sideroblasts (principal); D60.8 Other acquired pure red cell aplasias; M32.9 Systemic lupus erythematosus, unspecified; I25.2 Old myocardial infarction; I11.0 Hypertensive heart disease with heart failure; R68.2 Dry mouth, unspecified; K59.03 Drug induced constipation; T50.995A Adverse effect of other drugs, medicaments and biological substances, initial encounter
CPT/HCPCS: 96372; 99214; J0896

== ENCOUNTER → 2020-05-19 10:26 | Outpatient (BNVA) | payer MEDICARE, SELFPAY | PROVIDERS: PCP Family Medicine; Visit Provider Internal Medicine Medical Oncology | DX: D46.1 Refractory anemia with ring sideroblasts (principal) | CPT/HCPCS: 85025 ==

== ENCOUNTER → 2020-06-02 09:08 | Outpatient (BNVA) | payer MEDICARE, SELFPAY | PROVIDERS: PCP Family Medicine; Visit Provider Internal Medicine Medical Oncology | DX: D64.89 Other specified anemias (principal) | CPT/HCPCS: 85025 ==

== ENCOUNTER 2020-06-04 10:45 | Outpatient (CLI) | payer MEDICARE, SELFPAY ==
--- NOTE | 2020-06-08 21:37 | ONC FU_ITS ---
[facility] Patient Note Patient: Mike Sylvester Unit #: [id number]: 1935 Dictated By: Lexx MacDate of Visit: Jun 04, 2020 Onc MED Follow-Up/Prog Note Chief Complaint: Myelodysplastic syndrome. 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 He has had long-standing anemia, refractory to erythropoietin stimulating agents. He was first seen here by Dr. Smith on 06/24/2011. 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 He had abundant proliferation of granulocytes and megakaryocytes with mild dyspoiesis. Flow cytometry, cytogenetics, FISH panel for MDS and reticulin stains were unrevealing. Flow cytometry for PNH was negative, and JAK2 and BCR/abl studies were unrevealing. He was diagnosed with systemic lupus erythematosus, and established care with rheumatology. His further workup revealed positive SLE serology, with positive antibodies for SSA, SSB, BICYCLE COURIER, and scleroderma. Complement levels C3, C4 were reduced. He responded to high dose prednisone, eventually tapered off in September of 2011 with hemoglobin recovered to 10-11 g/dL and transfusion independent. He was doing well until December of 2011, when he presented with recurrent anemia with hemoglobin 8.3 g/dL, and symptomatic CHF. At that time prednisone was restarted and tapered but also cyclosporin 100 mg by mouth 3 times a day was added. His anemia remained stable between 9-10 g/dL, and he was tolerating cyclosporin well. Since May 2012 he was under the care of Dr. Delgado in [place], as it was closer to home. He was receiving transfusion support about 3-4 times per year, Epogen injections monthly. He continued on cyclosporin at 100 mg three times a day. He ran out of methimazole and did not follow up with his information operator. Since July of 2013 had been receiving Epogen weekly, as he had more refractory anemia. In interim he required an AICD placement for his ischemic cardiomyopathy in September of 2013. In October 2013, he developed flash pulmonary edema associated with hemoglobin bruce around 7 g/dL. He was seen here again on 11/13/2013. While he remained on therapy with cyclosporin, his repeat bone marrow biopsy on 11/14/2013 was essentially unchanged. He had total of 80% cellularity with some limited dyspoiesis in megakaryocytes. He continued to have only 6% of red cells precursors. Cytogenetics failed to culture metaphase cells. FISH panel for MDS was negative. ESR 52, LDH 385 without hemolysis, and erythropoietin level 251. Thus, it had become clear that he was not responding to cyclosporine therapy. Cyclosporine and Epo injections were stopped to get a better sense of a new baseline. Prednisone 80 mg was restarted on 12/05/2013. Two weeks after steroid therapy his hemoglobin increased from 8.2 g/dL to 9.7 g/dL, indicating positive response, providing further evidence that an underlying immune process was affecting the RBC precursors. CT of the chest on 12/12/2013 showed no evidence of thymoma. He had moderate emphysema, indeterminate mediastinal lymph nodes up to 11 mm, stable left adrenal mass and a mild splenic enlargement. Given evidence of lupus like autoimmune condition, the alternative immunosuppressive therapy with rituximab began on 12/26/2013, as per discussion with Dr. Contreras, at [facility]. He received 4 weekly doses, completed on 01/16/14, and steroids were titrated down faster. Aranesp was restarted. His hemoglobin recovered and remained stable at above 10 g/dL, indicating positive response to rituximab treatment. He had a follow up with Dr Contreras at [facility], clonal evolution by next generation sequencing showed a new clonal mutation, confirming diagnosis of MDS. Second trial of rituximab began on 08/06/14- 08/27/14. Aranesp decreased down to every 2 weeks. The patient received cycle 3 of rituximab therapy from 01/28/15 to 02/18/15. He was doing well without complications. He continued on Aranesp therapy, and his hemoglobin remained stable. On 02/27/15 he was admitted with unstable angina. He required blood transfusion, but was refractory to it. Percutaneous coronary intervention was attempted, but reportedly was not successful. His hemoglobin declined to 8.4 g/dL in July 2015, recovered to 10 g/dL with the trial of steroids once again. His hemoglobin stabilized at 9.8 g/dL, and he completed steroid taper. His therapy was changed to Aranesp every 3 weeks because of the issues with transportation. He had a non-ST elevated myocardial infarction in November 2015, for which he underwent cardiac catheterization on 12/10/2015. He was found to have severe three-vessel disease with occluded grafts. There also was evidence of severe ischemic cardiomyopathy. Apparently it was felt that his disease was not amenable to any intervention. However, in the setting of symptomatic underlying coronary artery disease, he was deemed to be inappropriate for treatment with an erythropoietin stimulating agent, and the Aranesp was discontinued. He continued low-dose prednisone. He underwent repeat bone marrow aspiration/biopsy on 06/29/2016. Cellularity was increased, estimated at 75-80%. There was mild megakaryocyte dyspoiesis. There was no significant dyserythropoiesis noted. Blasts were reported at 0%. There was no storage iron identified. The FISH panel for MDS was unrevealing and the standard chromosome analysis was normal. The findings were nondiagnostic other than the apparent iron deficiency. He was given parenteral iron replacement with a single infusion of Injectafer on 08/17/2016. There was no observable response, as his follow-up CBC on 09/09/2016 showed his hemoglobin down to 7.7 g compared to 8.7 g on 08/04/2016. At that point he did receive a transfusion of 1 unit of packed red blood cells. As of December 2016 his hemoglobin level had decreased to under 9 g, and he also developed mild leukopenia. He underwent repeat bone marrow aspiration/biopsy on 03/05/2017. The marrow was hypercellular at 90-95%. There was evidence of megakaryocyte disc dyspoiesis. Erythroid precursors were noted to be decreased, and there was limited dyserythropoiesis. Iron stores were 1+. Ring sideroblasts were present, accounting for 20% of nucleated red cells. Blasts were estimated at 3%. The FISH panel for MDS was unrevealing, and the standard chromosome analysis was normal. Overall, the findings were felt to be consistent with myelodysplastic syndrome (MDS with ring sideroblasts). During subsequent follow-up on low-dose prednisone he continued to have moderately severe anemia, but above transfusion threshold. However, on 05/31/2017 his hemoglobin had dropped to 7.3 g. He was significantly more fatigued and short of breath. He was given a transfusion of 2 U of packed red blood cells on 06/01/2017. He then began a trial of therapy with Revlimid 10 mg daily. During subsequent follow-up he continued to have moderately severe anemia. He required transfusion again on 07/21/2017. He then developed severe neutropenia, ANC 600. As of 08/23/2017 the Revlimid was put on hold. His subsequent blood counts continued to show anemia and neutropenia. He required further transfusions on 08/31/2017 and on 09/27/2017. During this time, he underwent placement of a Watchman SILVIA occlusion device. He had no complications with the procedure. He initially continued anticoagulation with apixaban 2.5 mg twice a day together with clopidogrel 75 mg daily, but it was later changed to just aspirin. He also has continued immunosuppressive therapy with hydroxychloroquine 200 mg twice a day and prednisone 5 mg daily. He remained transfusion dependent. As of February 2018 his ferritin level had increased to 1153 ng/mL, and he then started treatment with deferasirox. It was stopped in September 2018 after his ferritin level had dropped to less than 500 ng/mL. On 11/27/2018 he was admitted to the hospital after falling at home and sustaining a left hip fracture. He apparently developed an infection postoperatively, but eventually was transferred to rehabilitation on 12/20/2018 and he was able to return home on 01/05/2019. During that time he was taken off hydroxychloroquine. He continued on low-dose prednisone at 5 mg daily. His other medical illnesses include hypertension, dyslipidemia, coronary artery disease, congestive heart failure, hypothyroidism, and systemic lupus. He has a history of prior stroke. He has undergone coronary artery bypass surgery. He has had a previous cholecystectomy, and he has undergone removal of colonic polyps. He underwent right inguinal hernia repair at [facility] in March 2016. He has history of smoking 1-1/2 packs of cigarettes daily for 60 years, but he quit smoking approximately 2006. INTERIM HISTORY: As of August 2019 he had been scheduled to begin a trial of therapy with luspatercept, but he opted to put off treatment due to the coronavirus pandemic. In September he underwent vascular procedures on both legs due to his chronic venous insufficiency. His repeat CBC on 10/22/2019 showed further decline in his hemoglobin to 7.3 g, but at that time he declined transfusion. On 11/18/2019 he returned for his initial injection of luspatercept. At that time his hemoglobin was still low at 8.1 g, and he did opt to receive 2 units PRBC. He received a second injection of luspatercept on 12/09/2019. His hemoglobin at that point was up to 10.3 g. He then continued with the luspatercept at 3-week intervals with his hemoglobin level remaining basically stable. Mr Sylvester is here today for followup and consideration of treatment with luspatercept. It is noted that his hemoglobin today is 8.6. He reports that he had recent fall and that he just got dizzy and fell. He thinks his blood pressure is running too low but has an appointment with his primary care tomorrow. He states he will do his follow-up with him for that. Apparently he has had changes in his blood pressure medication recently and does feel that is too much for him. His blood pressure is stable at his visit today. He denies any other concerns. He states otherwise he feels pretty good. He is eating good. He states that he just cannot do anything because he gets too winded. Again he was reminded that his hemoglobin is 8.6 and that could account for some of his shortness of breath. He states he has had no chest pain but feels that this is probably cardiac as well. He states that his they have been changing his blood pressure medicine. He denies any recent activity with his defibrillator. He denies any extremity edema or pain. His ECOG remains at 2 due to his shortness of breath. Past Medical History: Adrenal nodule (left) Anemia Congestive heart failure Coronary artery disease Dyslipidemia Hypertension Hypothyroidism Myocardial infarction O2 dependent Stroke Systemic Lupus Atoric stent placement in 2018 ANEMIA,SLE,DYSLIPIDEMIA,left adrenal nodule, labile HTN, lower GI bleed with cecal AVM, IA WITH CABG X 2, Hernia repair 2008, Cholesystectomy 2010. Past Surgical History: Cabg x2 Cholecystectomy Colon polyp removal Coronary artery bypass - 3 VESSELS Flu vaccine in 2013 Bone marrow aspiration in 2011 Bone marrow biopsy in 2011 COLON POLYP REMOVAL Allergies: No Known Allergies. Medications: Carvedilol 2 Tablet (of 6.25 mg) Oral b.i.d. Combigan 1 drop(s) (of 0.2-0.5 %) Solution Ophthalmic daily Furosemide 2 Tablet (of 40 mg) Oral daily for 3 days Latanoprost 1 Drop(s) (of 0.005 %) Solution Ophthalmic daily Luspatercept-aamt (88 mg) Subcutaneous q 3 weeks Magnesium 1 (400 mg) Tablet Oral daily Nitroglycerin 1 (0.4 mg) Tablet, sublingual Sublingual PRN Ocuvite 1 Tablet Oral daily Plavix 1 (75 mg) Tablet Oral daily Potassium Chloride ER 1 (10 meq) Capsule, controlled release Oral daily PredniSONE 1 Tablet (of 5 mg) Oral daily Simvastatin 1 (20 mg) Tablet Oral daily Vitamin B12 1 Tablet (of 5000 mcg) Oral daily Family History: Mr. Alarcons mother at age 89: cancer history consists of Colon cancer. Mr. Sylvester's father is : medical history includes IA (cause of ). Mr. Sylvester has 1 brother who is : medical history includes IA at age 44 (cause of ). MOTHER WAS DX WITH COLON CA AT AGE 66,FATHER OF IA,BROTHER AT AGE 44 FROM IA. Social History: Mr. Sylvester is and he is retired. Mr. Sylvester no longer smokes. Mr. Sylvester reports the following support systems: lives alone, lives in own house, supportive family/friends willing to assist with needs, and adequate transportation available for expected visits. His diet consists of regular meals. He indicates his activity level as: daily activities. Review Of Symptoms: Constitutional Denies fevers, chills, night sweats. He states he feels good overall just can't do anything without being winded . Allergic/Immunologic No reactions. Eyes Denies significant visual changes. ENMT Denies changes in hearing, sore throat, mouth sores, difficulty or changes in swallowing ability. Hematologic/Lymphatic Denies easy bleeding. The patient denies any tender or palpable lymph nodes. Easy bruising Respiratory Denies chest pain, cough. Dyspnea upon exertion. Cardiovascular Denies anginal chest pain. Gastrointestinal Denies nausea, vomiting, diarrhea, heartburn. Chronic constipation but controlled at present. Genitourinary (M) Denies hematuria, dysuria, increased frequency, hesitancy or incontinence. Musculoskeletal Denies joint pain, swelling or redness. No decreased range of motion. Chronic swelling in feet/lower legs on Lasix 80 mg daily. Integumentary Denies chronic rashes, inflammation, ulcerations or skin changes. Neurologic Denies headache, blurred vision. Psychiatric Denies insomnia, depression, anxiety. Vital Signs: Performed on Jun 04, 2020 11:45 Height - 71.00 in Temperature - 97.0 F (LOW) Pulse - 78 /min Respiration - 18 /min BP - 137/62 mm(hg) O2 Sat - 92 % (LOW) Pain - 10 Fatigue - 5,2 - Ambulatory/capable of all self-care, unable to perform any work activities. Up and about more than 50% of waking hours. (ECOG) Physical Examination: Constitutional Alert, oriented, no acute distress. Skin pink, warm and dry. Pleasant Head Normocephalic; atraumatic. Eyes Conjunctivae and sclerae are clear and without icterus. Pupils are reactive and equal. Neck Supple without masses or thyromegaly. No jugular venous distension. Hematologic/Lymphatic No petechiae or purpura. Respiratory Lungs are clear to auscultation. Cardiovascular Regular rate and rhythm of heart with soft systolic flow murmur, but no clicks, gallops or rubs. Abdomen Non-tender, non-distended, no masses, ascites. Good bowel sounds noted in all quads. No guarding or rebound tenderness. No pulsatile masses. Back/Spine Non-tender to palpation. Extremities Chronic edema +3 left and +2 right Integumentary No rashes or lesions. Neurologic No sensory or motor deficits, normal cerebellar function, normal gait. Psychiatric Alert and oriented times three. Coherent speech. Verbalizes understanding of our discussions today. Laboratory:Test performed on Jun 02, 2020 11:47 WBC 4.5 10^9/L RBC 2.27 10^12/L HGB 8.6 g/dL HCT 27.7 % MCV 122.1 fl MCH 38.1 pg MCHC 31.2 g/dL RDW 21.2 % Platelet Count 473 10^9/L Neutrophils (Gran) 1.323 10^9/L Lymphocytes 2.124 10^9/L Monocytes 1.053 10^9/L Test performed on May 19, 2020 10:26 MPV 8.0 fL Manual Lymphocytes 50.6 % Manual Monocytes 24.6 % Test performed on Mar 26, 2020 11:28 Protein, Total 6.8 g/dL Albumin 3.9 g/dL Bilirubin, Total 1.0 mg/dL Bilirubin, Direct 0.3 mg/dL Alkaline Phosphatase 103 IU/L AST (SGOT) 41 IU/L ALT (SGPT) 14 IU/L Test performed on Mar 02, 2020 00:00 Manual Diff Cancelled via OM: Cancelled in Connected System Test performed on Feb 10, 2020 08:48 LDH (Total) 379 U/L Sodium 141 mmol/L Potassium 4.0 mmol/L Chloride 98 mmol/L CO2 33 mmol/L Anion Gap 14.0 BUN 16 mg/dL Creatinine 0.9 mg/dL Cr Clearance (Est) 77.0100 mL/min Glucose 115 mg/dL Calcium 8.9 mg/dL Osmolality - Calculated 289 mOsm/kg Globulin 2.7 g/dL Eosinophils 0.1 10 3/uL Basophils 0.1 10 3/uL Neutrophil % 32.8 % Eosinophil % 1.4 % Basophils % 1.6 % NRBC % 0 % Test performed on Dec 09, 2019 09:22 Polychromasia 1+ Anisocytosis 1+ Poikilocytosis 1+ Stomatocytes 1+ CBC Slide Review Slide Review Perform SLIDE REVIEW AGREES WITH AUTOMATED RESULTS ST Impression: 1. 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 2. He has had evidence of underlying autoimmune disease, including systemic lupus erythematosus. 3. His anemia has shown response to immunosuppressive therapy, which has included steroid therapy and rituximab. He appeared, though, to have failed treatment with cyclosporine. 4. He also had benefit with an erythropoietin stimulating agent. 5. He was hospitalized with non-ST elevation myocardial infarction in November 2015. At that point it was felt that he was not eligible for further treatment with an erythropoietin stimulating agent. His other medical illnesses include: 6. Hypertension. 7. Dyslipidemia. 8. Coronary artery disease. 9. He has history of atrial fibrillation and congestive heart failure. 10. Hypothyroidism. 11. History of prior stroke. He had initially been stable clinically following the myocardial infarction in November 2015, but with some decline in his hemoglobin/hematocrit levels. His repeat bone marrow aspiration/biopsy on 06/29/2016 showed absent storage iron consistent with iron deficiency. The marrow was hypercellular, but there were no other diagnostic findings. It was uncertain of the clinical significance of the absent storage iron, as he had normal transferrin saturation and elevated ferritin. He was given a single infusion of Injectafer on 08/17/2016. There was no observable response. He required transfusion again in August 2016. As of December 2016 his hemoglobin had declined under 9 g, and he also developed mild leukopenia. His repeat bone marrow aspiration/biopsy on 03/05/2017 was consistent with myelodysplastic syndrome (MDS with ring sideroblasts). His IPSS-R score calculated to 3.0, low risk. During subsequent followup his hemoglobin level remained stable in the range of 8-9 g, above transfusion threshold. As of 05/31/2017 his hemoglobin had dropped to 7.3 g. He was transfused 2 U of packed red blood cells. He then started a trial of therapy with Revlimid 10 mg daily. He required another transfusion of PRBC within 1 month after starting the Revlimid. During subsequent follow-up, he continued to have moderately severe anemia. He then developed severe neutropenia, and as of his follow-up visit on 08/23/2017 the Revlimid was put on hold. During subsequent follow-up he remained transfusion dependent, but he did have recovery of his neutrophil count. As of February 2018 he began chelation therapy with deferasirox, as his ferritin had become significantly elevated. It was stopped in September 2018 with the ferritin level had dropped below 500 ng/mL. On 11/27/2018 he was admitted to the hospital after falling at home and sustaining left hip fracture. He had a gradual recovery following that surgery, though he has since then had worsened bladder function with difficulty voiding. He has chronic edema and he required treatment at wound care clinic for venous stasis ulcers on both legs. In September 2019 he underwent a vascular procedure to both legs for the venous insufficiency. He had significant improvement in his edema following that procedure. He continued, though, to have moderately severe anemia, and on 11/18/2019 he began a trial of therapy with luspatercept at 1 mg/kg by subcutaneous injection every 3 weeks. He has had some constipation with the luspatercept and he also complains of dry mouth. He has otherwise tolerated it well. He had a significant increase in his hemoglobin/hematocrit levels with the luspatercept, with his hemoglobin stabilizing in the range of 10 g. He has remained transfusion independent, and he has had improvement in his clinical status. Plan: PROBLEMS ADDRESSED TODAY 1. Chronic anemia with mild dysplastic syndrome with ring cider blast A. Proceed with luspatercept but we will increase his dose to 1.33 mg/kg as per guidelines in the packaging insert for luspatercept???aamt. B. Labs from June 02, 2020 reviewed in detail discussed with Mr. Sylvester and a copy was given to him. WBC 4.5, hemoglobin 8.6 hematocrit 27.7 platelets 4 73,000 ANC was 1300. I did not find chemistry. C. We will plan to follow-up with him as scheduled in July 2020 for a provider visit. He will continue to have weekly CBC CMP and luspatercept as indicated. D. Mr. Sylvester was instructed to contact us in interim should questions or problems arise. 2. REPORTED RECENT FALL WITH NO APPARENT INJURY BUT SHOULDER SORENESS-PATIENT STATES FALL WAS DUE TO LOW BLOOD PRESSURE A. I offered to order an xray of his shoulder today but he states he will followup with his PCP as scheduled tomorrow. B. He states he will discuss his blood pressure medication with his PCP tomorrow as well. Signed By: Lexx Mac-, AOCNP Craig Grayson MD <<Signature on File>>
== END 2020-06-04 10:46 | disposition home or self-care (01) ==
LOC: ONCMED 10:50
PROVIDERS: PCP Family Medicine; Visit Provider Nurse Practitioner
DX: D46.1 Refractory anemia with ring sideroblasts (principal); D60.0 Chronic acquired pure red cell aplasia; M32.9 Systemic lupus erythematosus, unspecified; E78.5 Hyperlipidemia, unspecified; I48.91 Unspecified atrial fibrillation; I25.10 Atherosclerotic heart disease of native coronary artery without angina pectoris; I11.0 Hypertensive heart disease with heart failure; E03.9 Hypothyroidism, unspecified; I25.2 Old myocardial infarction; W19.XXXA Unspecified fall, initial encounter; S49.90XA Unspecified injury of shoulder and upper arm, unspecified arm, initial encounter; Z86.73 Personal history of transient ischemic attack (TIA), and cerebral infarction without residual deficits
CPT/HCPCS: 96372; 99214; J0896

== ENCOUNTER → 2020-06-23 09:00 | Outpatient (BNVA) | payer MEDICARE, SELFPAY | PROVIDERS: PCP Family Medicine; Visit Provider Internal Medicine Medical Oncology | DX: D46.1 Refractory anemia with ring sideroblasts (principal) | CPT/HCPCS: 85007; 85025; 85027 ==

== ENCOUNTER 2020-06-25 06:29 | Outpatient (CLI) | payer MEDICARE, SELFPAY | END 2020-06-25 06:30 | disposition home or self-care (01) | LOC: ONCMED 06:30 | PROVIDERS: PCP Family Medicine; Visit Provider Nurse Practitioner | DX: D46.1 Refractory anemia with ring sideroblasts (principal); D50.8 Other iron deficiency anemias; D60.0 Chronic acquired pure red cell aplasia | CPT/HCPCS: 96372; J0896 ==

== ENCOUNTER → 2020-07-21 09:35 | Outpatient (BNVA) | payer MEDICARE, SELFPAY | PROVIDERS: PCP Family Medicine; Visit Provider Internal Medicine Medical Oncology | DX: D46.1 Refractory anemia with ring sideroblasts (principal) | CPT/HCPCS: 85025 ==

== ENCOUNTER 2020-07-23 06:10 | Outpatient (CLI) | payer MEDICARE, SELFPAY ==
[2020-07-23 09:54] LABS: Hemoglobin 8.4 g/dL (11.7-16.6); Mean Corpuscular Hemoglobin 40.6 pg (28.0-34.0); Mean Corpuscular Volume 135.3 fL (80-94); Mean Platelet Volume 10.6 fL (7.4-10.4); Platelet Count 386 10^3/cmm (130-400); Red Blood Count 2.07 10^6/uL (4.1-5.3); Red Cell Distribution Width 18.1 % (12.1-15.1); White Blood Count 5.8 10^3/uL (4.0-10.0)
[2020-07-23] MEDS: diphenhydrAMINE 25 mg Capsule PO (10:00)
[2020-07-23] MEDS: acetaminophen 325 mg Tablet 650 MG PO (10:29)
[2020-07-23 10:33] LABS: Slide Review Slide Review Perform
[2020-07-23 10:39] LABS: Absolute Eosinophils 0.1 10^3/cmm (0.0-0.7); Absolute Segmented Neutrophil 1.7 10/cmm (1.6-7.1); Band Neutrophils Absolute 1.2 10^3/cmm (0.0-1.2); Eosinophils 3 %; Lymphocytes 21 %; Monocytes Absolute 1.2 10^3/cmm (0.1-0.6); Segmented Neutrophils 30 %; Total Cells Counted 100 (0-100)
[2020-07-23 10:40] LABS: Absolute Neutrophil 2.9 10^3/cmm (1.4-6.5); Macrocytosis 1+; Platelet Estimate Normal (Normal); Stomatocytes 1+
--- NOTE | 2020-07-23 11:41 | XR_ITS ---
WS: [id number] Exam: XR chest 2V* [id number] Date/Time of Exam: 07/23/2020 11:41 AM Reason For Exam: ANEMIA/SHORTNESS OF BREATH/COUGH/EDEMA Comparison 04/14/2020. The heart is enlarged. The lungs are hyperinflated. Pulmonary vascularity slightly increased. Trace l eft pleural effusion. The lungs are fully inflated. A permanent cardiac pacer superimposes the left c hest. Signs of previous CABG surgery. The mediastinum and bony thorax are unremarkable. XR/XR chest 2V* [id number] IMPRESSION: 1. Cardiac enlargement with mildly increased pulmonary vascularity. 2. Pulmonary hyperinflation probably indicating obstructive lung disease. 3. Trace left pleural effusion.
[2020-07-23 11:44] LABS: Alanine Aminotransferase 10 U/L (0-41); Albumin Level 3.2 g/dL (3.5-5.2); Alkaline Phosphatase 106 IU/L (40-130); Aspartate Amino Transferase 18 U/L (0-40); Blood Urea Nitrogen 30 mg/dL (8-23); Calcium 8.2 mg/dL (8.5-10.5); Carbon Dioxide 29 mmol/L (22-29); Chloride 104 mmol/L (98-107); Globulin 3.1 g/dL (1.3-4.6); Glucose 127 mg/dL (65-115); NT Pro B Type Natriuretic Pept 7775 pg/mL (0-450); Osmolality Calculated 296 mOsm/kg (285-295); Sodium 139 mmol/L (136-145); Total Bilirubin 0.7 mg/dL (0.15-1.2); Total Protein 6.3 g/dL (6.6-8.7)
[2020-07-23] MEDS: FUROsemide 10 mg/mL SDV 2mL 20 MG IV ×2 (14:20)
== END 2020-07-23 06:11 | disposition home or self-care (01) ==
PROVIDERS: PCP Family Medicine; Visit Provider Internal Medicine Medical Oncology
DX: D46.1 Refractory anemia with ring sideroblasts (principal); D60.0 Chronic acquired pure red cell aplasia; D50.9 Iron deficiency anemia, unspecified
CPT/HCPCS: 36415; 71046; 80053; 83880; 85007; 85025; 86850; 86900; 86920; J1940; P9040

== ENCOUNTER → 2020-08-24 08:55 | Outpatient (BNVA) | payer MEDICARE, SELFPAY | PROVIDERS: PCP Family Medicine; Visit Provider Internal Medicine Medical Oncology | DX: D64.9 Anemia, unspecified (principal) | CPT/HCPCS: 85007; 85025 ==

== ENCOUNTER 2020-08-26 08:04 | Outpatient (CLI) | payer MEDICARE, SELFPAY ==
[2020-08-26] MEDS: sodium chloride 0.9% 250 ML 999 ML IV (09:08)
[2020-08-26] MEDS: acetaminophen 325 mg Tablet 650 MG PO (09:08)
[2020-08-26] MEDS: diphenhydrAMINE 25 mg Capsule PO (09:08)
[2020-08-26] MEDS: FUROsemide 10 mg/mL SDV 2mL 20 MG IV (11:25)
== END 2020-08-26 08:05 | disposition home or self-care (01) ==
LOC: ONCMED 08:05
PROVIDERS: PCP Family Medicine; Visit Provider Internal Medicine Medical Oncology
DX: D46.1 Refractory anemia with ring sideroblasts (principal); D50.9 Iron deficiency anemia, unspecified; D60.0 Chronic acquired pure red cell aplasia
CPT/HCPCS: 86850; 86900; 86920; J1940; J7050; P9016